=== PATIENT | female | born 1980 | race Caucasian/White ===

== ENCOUNTER 2024-04-26 15:44 | Inpatient (IN) | payer MEDICAID, SELFPAY ==
--- NOTE | 2024-04-26 15:49 | PD.EDRME ---
Rapid Medical Screening Exam RME Arrival date/time: 04/26/24 15:44 Chief Complaint: Altered Mental Status Time Seen by Provider: 04/26/24 15:49 RME Narrative: 43 year old female with past medical history significant for type 2 diabetes, current smoker, presents to the Emergency Department with complaint of left arm numbness and now going to her left face and jaw area onset the last 2 days but numbness to the face and jaw started today in the last few hours. No weakness. No pain. Normal gait. 1547: Stroke alert initiated. Orders made at this time are congruent stroke protocol.
[2024-04-26 15:50] VITALS: BMI 29.7
--- NOTE | 2024-04-26 15:50 | XR_ITS ---
Examination: CT brain head without contrast. 2-D sagittal coronal reconstructions Date and time of exam:April 26, 2024 at 1833 hrs. Indications: Stroke alert, onset left-sided body numbness today CTDI: vol (mGy):47.4 DLP: (mGycm):970 Technique: Multiple CT axial sections of the brain have been obtained, 5 mm slice thickness. Contrast has not been administered. 2-D sagittal, coronal reconstructions have been obtained Low dose protocols were performed. One or more of the following dose reduction techniques were used; automated exposure control, adjustment of the mA and/or KV according to patient size, use of iterative reconstruction technique. Findings: No significant ventricular enlargement. Intra-axial or extra-axial hemorrhage density is not seen. No mass effect or midline shift Basal cisterns are not remarkable. Fourth ventricle is midline. Cranial vault intact. Impression: Negative for acute hemorrhage, mass effect or midline shift
--- NOTE | 2024-04-26 15:50 | EKG_ITS ---
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
--- NOTE | 2024-04-26 15:52 | EDNOTE_ITS ---
Neuro Symptoms Deficit-RME/HPI General Chief Complaint: Altered Mental Status Stated Complaint: NUMBNESS TO LEFT ARM TIMES 3 DAYS Time Seen by Provider: 04/26/24 15:49 Arrival date/time: 04/26/24 15:44 RME / HPI RME / HPI Narrative: DR. MAE MAIN ED EVALUATION: 43 year old female with past medical history significant for type 2 diabetes, anxiety, current tobacco smoker, and methamphetamine abuse presents to the [facility] Department with complaint of left arm numbness and now going to her left face and left jaw area onset the last 2 days but numbness to the left face and left jaw started today in the last few hours. No weakness. No pain. Patient standing and normal gait. No facial droop. Patient denies severe headache. Patient denies trauma or having symptoms like this in the past. 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 Related Data Previous Rx's ?Medication ?Instructions ?Recorded metformin 850 mg tablet 850 mg PO BID #60 tabs 10/01 cephalexin 500 mg capsule (Keflex) 500 mg PO TID #21 c aps 10/10/19 acetaminophen 500 mg tablet 1,000 mg (2 x 500 mg) PO Q ID PRN 05/21/20 (Tylenol Extra Strength) fever or pain #60 tabs albuterol sulfate 90 mcg/actuation 2 puff inhalation Q ID #18 grams 05/21/20 aerosol inhaler albuterol sulfate 90 mcg/actuation 2 puff inhalation Q ID PRN 05/21/20 aerosol inhaler shortness of breath or wheez ing #18 grams azithromycin 250 mg tablet See Rx Instructions PO .COM PLEX #6 05/21/20 tabs ibuprofen 800 mg tablet (IBU) 800 mg PO TID PRN pain # 30 tabs 08/03/20 dicyclomine 20 mg tablet 20 mg PO BID #10 tabs Allergies Allergy/AdvReac Type Severity Reaction Status Date / Time No Known Allergies Allergy Verified 06/18/22 07:56 Review of Systems Review of Systems Systems Reviewed: All systems reviewed, normal except as documented Narrative Review of Systems: GEN: No fever, no chills, no weight loss EYES: No discharge, no visual changes, no pain HEENT: No ear pain, no congestion, no sore throat PULM: No shortness of breath, no cough, no congestion CV: No chest pain, no dyspnea on exertion, no palpitations GI: No nausea, no vomiting, no diarrhea, no pain, no constipation : No frequency, no urgency and no dysuria MUSC/SKEL: No joint pain, no back pain SKIN: No rash PSYCH: No hallucinations, no depression HEME/LYMPH: No easy bleeding or bruising tendencies NEURO: No weakness, no headache, + left arm numbness and now going to her left face and left jaw area Past Medical History Past Medical History ENDOCRINE: Positive Diabetes Mellitus Type 2 PSYCHO/SOCIAL: Positive Anxiety Social History SMOKING STATUS: Never smoker SUBSTANCE USE: methamphetamine ALCOHOL: Never ED Exam Narrative Physical exam: GENERAL: In general the patient is awake, interactive, in an emergency department gurney. VITALS: All vitals were reviewed and the pulse ox is 100% on room air which is adequate. HEAD/EYES/EARS/NOSE/THROAT: normo-cephalic, atraumatic, mucus membranes are moist, anicteric, palpebral conjunctiva is pink, trachea is midline. CARDIOVASCULAR: regular rate and regular rhythm, no murmurs, heart sounds are not distant, strong pulses in all four extremities that are equal and symmetric bilateral upper and lower extremities, normal capillary refill. CHEST/PULMONARY: normal chest rise and fall, good air movement, clear to auscultation bilaterally, normal inspiratory to expiratory ratios without evidence of respiratory distress. ABDOMEN: soft, not tender, no masses appreciated BACK: normal range of motion without pain. NEUROLOGICAL: left face numbness; no one-sided weakness. Patient standing and normal gait. No facial droop, moves all four extremities equally without obvious limitations or weakness. EXTREMITY: no tenderness to palpation over the long bones or large joints of the bilateral upper and lower extremities, no joint swelling, no joint erythema, no signs of trauma, no unilateral leg swelling and no peripheral edema. SKIN: warm, dry, well-perfused, no jaundice, no rash, no telangiectasias or petechia. PSYCH: calm, cooperative, no evidence of psychosis or agitation Course Course Course Narrative: 1547: Stroke alert initiated. Orders made at this time are congruent stroke protocol. Quality Measures none Orders Category Date Time Status Bedside Blood Glucose NOW Care 04/26/24 15:50 Active COVID-19 Screening Questionnaire NOW Care 04/26/24 17:31 Active [employer] NOW Care 04/26/24 15:50 Active Continuous Pulse Oximetry NOW Care 04/26/24 15:50 Completed Decision to Admit X1 Care 04/26/24 17:31 Active EKG (ED ONLY) *Do not use* NOW Care 04/26/24 15:50 Completed In and Out Catheter NEEDED Care 04/26/24 15:50 Active Insert IV NOW Care 04/26/24 15:50 Active NIH Stroke Scale now Care 04/26/24 15:50 Active NPO NOW Care 04/26/24 15:50 Active Nurse Swallow Screen x1 Care 04/26/24 15:50 Active Consult to Neurology / Tele-Neurology Routine Cons 04/26/24 15:[address] angio stroke protocol Stat Exams 04/26/24 15:[address] stroke protocol Stat Exams 04/26/24 15:50 Taken EKG (ED Only) Stat Exams 04/26/24 15:50 Draft CBC Stat Lab 04/26/24 16:35 Completed Comprehensive Metabolic Panel Stat Lab 04/26/24 16:35 Completed Drug Screen,Urine Stat Lab 04/26/24 15:50 Ordered HCG Titer if Positive Stat Lab 04/26/24 16:35 Completed Magnesium Stat Lab 04/26/24 16:35 Completed Partial Thromboplastin Time Stat Lab 04/26/24 16:35 Completed Prothrombin Time with INR Stat Lab 04/26/24 16:35 Completed Troponin I Stat Lab 04/26/24 16:35 Completed Urinalysis Stat Lab 04/26/24 15:50 Ordered Ondansetron Inj [Zofran Inj] Med 04/26/24 15:49 Active 4 mg IV Q4HR PRN Oxygen Delivery NOW RT 04/26/24 15:50 Active Vital Signs Vital signs: Vital Signs Pulse Rate 85 04/26/24 16:17 Procedures -ED EKG Interpretation #1: Date of EK04/26/24 Time of EK:17 Rate: 82 Interpretation: Interpreted by me Additional EKG comment: sinus rhythm, rate 82, normal interval, normal axis, no STEMI Neuro Symptoms / Deficit MDM Narrative MDM Narrative:: I, Brittney Arambula, am scribing for and in the presence of Dr. Mae. 43-year-old female with history of diabetes, active smoker presenting to the emergency department with intermittent left upper extremity numbness over the last 2 days with radiation to her left neck and face that started approximately 2 hours prior to arrival to the emergency department. The patient states she just was not feeling well and presented here by car. On arrival to the emergency department patient was immediately sent to CAT scan and seen by teleneurologist while in CAT scan. Fingerstick 180 on arrival. The patient was evaluated at triage and I did not see obvious facial droop, the patient was standing, and no focal weakness. Blood pressure is normotensive at 126/85. Teleneurologist did not feel the patient needed a CT angio so it was not completed. Last known normal 2 days ago but increase in symptoms 2 hours ago. Differential diagnosis includes possible lacunar infarct over the last few days, electrolyte abnormality, drug use, TIA. The patient does not have symptoms that suspect a large vessel occlusion. Patient data External records reviewed:: [facility] previous records (Reviewed last ED visit dated 06/18/22 discharged with the following: Body aches) Clinical information provided by:: patient Social determinants that could affect healthcare access:: none Patient has the following chronic illnesses:: type 2 diabetes, anxiety, current tobacco smoker, and methamphetamine abuse How is presenting disease/condition affected by chronic disease/condition?: exacerbated by Evaluation data The following diagnostics were reviewed and interpreted by me:: lab results, radiology exam(s) and EKG tracing(s) Lab and/or radiology exams considered but not ordered:: none Interpretation Summary: [facility] [address] [place] [address] [employer] Preliminary Report Draft Patient: ALPA VASQUEZ [facility]. Record#: [id number] Birthdate: 1980 Age/Sex: 43 / F Location: [facility] Attending Dr: Ordering Physician: Date of Service: Procedure(s): Accession Number(s): cc: ~ CT scan of the head without intravenous contrast (axial sections with sagittal and coronal reformats) April 26, 2024 1553 hours Clinical History: Focal neuro deficit, stroke suspected Findings: No evidence of intracranial hemorrhage, mass effect or midline shift. No definitive wedge-shaped acute infarcts are detected. The ventricles and CSF spaces are unremarkable. The calvarium is unremarkable. The mastoid air cells and the visualized paranasal sinuses are clear. Impression: No evidence of acute infarct, intracranial hemorrhage, mass effect or midline shift. If there are persistent clinical symptoms or additional clinical concerns, consider MRI. Discussion Details: Results verbally communicated to : Dr. Mae at 04:07 PM 04/26/2024 Report Electronically Signed By: Eliza Gómez 04/26/2024 4:29:16 PM [EST] Dictated By: Signed By: DD/ 1558 TD/TT: 04/26/24 1629 Ring Striker: Medications / Prescriptions Medications or Prescriptions considered but not ordered:: none Medication administrations:: Medication Administration History Ondansetron HCl (Ondansetron Inj 2 Mg/Ml Inj 2 Ml) 4 mg IV Q4HR PRN PRN Reason: NAUSEA OR VOMITING Stop: 05/26/24 15:48 see above Consultations Consultation(s) initiated? (list below): Yes Consultation #1 (Physician, Specialty, Details): Discussed test HPI, PMHx, lab, radiology results and/or management with tele neurologist. NIH score of 0. Following her recommendations (see her note for details), including admission for MRI and she does not recommend a CTA. Time: 16:19 Consultation #2 (Physician, Specialty, Details): Radiology called to state that the patient does not have an acute bleed or any other abnormality on her CT scan without contrast Time: 16:00 Consultation #3 (Physician, Specialty, Details): Discussed test HPI, PMHx, lab, radiology results and/or management with hospitalist. Will admit for further evaluation and management. Accepts patient for admission. Time: 17:31 Diagnosis Neuro Differential Diagnosis: transient cerebral ischemia and other (lacunar infarct, peripheral abnormality, electrolyte abnormality, drug use) Most likely diagnosis given after review of the tests above:: Left-sided numbness Admission Indicated Admission indicated?: indicated Explain why admission is indicated or not indicated:: Patient needs workup for TIA. Admission Request Was there a request for admission?: Yes Admission Attestation Admission request attestation: Discussed case with [] from Hospitalist service regarding admission. Discussed patients ED course, exam findings, labs, and radiology results. The Hospitalist [agrees,declines] to accept the patient for admission. Disposition Plan Disposition Plan: Admit Critical Care Time Critical Care Time Critical Care Time: Yes Total Critical Care Time (min.): 45 Attestation: The high probability of sudden, clinically significant deterioration in the patient?s condition required the highest level of my preparedness to intervene urgently. The services I provided to this patient were to treat and/or prevent clinically significant deterioration. Services included the following: chart data review, reviewing nursing notes and/or old charts, documentation time, application consultant collaboration regarding findings and treatment options, medication orders and management, direct patient care, vital sign assessments and ordering, interpreting and reviewing diagnostic studies and lab tests. Aggregate critical care time includes only time during which I was engaged in work directly related to the patient?s care, as described above, whether at bedside or elsewhere in the Emergency Department. It did not include time spent performing other reported procedures or the services of residents, students, nurses or physician assistants. Discharge Plan Plan Patient Disposition: Admit Acute Care w/in Hospital Patient condition on transfer: Stable Prescriptions/Referrals Prescriptions/Med Rec: No Action albuterol sulfate 90 mcg/actuation HFA aerosol inhaler 2 puff inhalation QID PRN (Reason: shortness of breath or wheezing) Qty: 18 0RF albuterol sulfate 90 mcg/actuation HFA aerosol inhaler 2 puff inhalation QID Qty: 18 0RF acetaminophen [Tylenol Extra Strength] 500 mg tablet 1,000 mg PO QID PRN (Reason: fever or pain) Qty: 60 0RF azithromycin 250 mg tablet See Rx Instructions .ROUTE .COMPLEX Qty: 6 0RF Rx Instructions: take 500 mg today (day 1), then 250 mg for 4 days (days 2-5) ibuprofen [IBU] 800 mg tablet 800 mg PO TID PRN (Reason: pain) Qty: 30 0RF metformin 850 mg tablet 850 mg PO BID Qty: 60 0RF cephalexin [Keflex] 500 mg capsule 500 mg PO TID Qty: 21 0RF dicyclomine 20 mg tablet 20 mg PO BID Qty: 10 0RF Problem List Clinical Impression: Left sided numbness, History of diabetes mellitus Patient/Caregiver Discharge Instructions Print Language: Hebrew Stand Alone Forms: Deborah Award Info., Patient Portal Info Letter
[2024-04-26 16:17] VITALS: PULSE 85
--- NOTE | 2024-04-26 16:20 | ESCONSULT_ITS ---
Tele Neuro Consultation Consultation Date 04/26/24 Consultation Narrative [facility] Tele[facility]urology Consult [facility] Patient Name:???Mary Alice Best Date of :???1980 Identification Number:??? Date of Service:???04/26/2024 15:49:50 Diagnosis:?R20.2 - Paresthesia of skin Impression: ?The patient has had waxing and waning left upper extremity numbness involving all 5 fingers of the left arm and also some paresthesias to the left face. This would not be consistent with a peripheral nerve problem. It is somewhat unusual that she has a position dependency to the left upper extremity but not the facial symptoms. This could be myelopathic in nature, but with no clear neck or radicular pain, she will need MRI of the brain to exclude a vascular event. Recommend starting aspirin for now. She will need routine CTA head and neck, transthoracic echocardiogram, fasting lipid panel, hemoglobin A1c. Our recommendations are outlined below. Recommendations: ? Stroke/Telemetry Floor ? Neuro Checks ? Bedside Swallow Eval ? DVT Prophylaxis ? IV Fluids, Normal Saline ? Head of Bed 30 Degrees ? Euglycemia and Avoid Hyperthermia (PRN Acetaminophen) ? Initiate or continue Aspirin 325 MG daily ? Antihypertensives PRN if Blood pressure is greater than 220/120 or there is a concern for End organ damage/contraindications for permissive HTN. If blood pressure is greater than 220/120 give labetalol PO or IV or Vasotec IV with a goal of 15% reduction in BP during the first 24 hours. Sign Out: ? Discussed with Emergency Department Provider Advanced Imaging: Advanced Imaging Deferred because: Non-disabling symptoms as verified by the patient; no cortical signs so not consistent with LVO Metrics: Last Known Well: Unknown Dispatch Time: 04/26/2024 15:49:50 Arrival Time: 04/26/2024 15:44:00 Initial Response Time: 04/26/2024 15:52:58Symptoms: left face and arm numbness/paresthesias. Initial patient interaction: 04/26/2024 15:57:00 NIHSS Assessment Completed: 04/26/2024 16:07:00Patient is not a candidate for Thrombolytic. Thrombolytic Medical Decision: 04/26/2024 16:07:00Patient was not deemed candidate for Thrombolytic because of following reasons: LKW outside 4.5 hr window. . I personally Reviewed the CT Head and it Showed no acute changes Primary Provider Notified of Diagnostic Impression and Management Plan on: 04/26/2024 16:24:40 History of Present Illness:Patient is a 43 year old Female. Patient was brought by private transportation with symptoms of left face and arm numbness/paresthesias. The patient is a 43-year-old woman with a history of diabetes and chronic tobacco use. She smokes half a pack per day and has smoked since she was 11 years of age. She does not take any blood thinners. 4 days ago she noted a waxing and waning numbness to her left arm and hand. She says that the pins and needle sensation that involves all 5 fingers and the entirety of the arm. Interestingly, she notes that if she holds the arm down. She has the symptoms more prominently, however, regardless of arm position. She has some pins and needles in her left face and cheek region as well. Her symptoms recurred at 11 AM today, but again has been coming and going for days now. There is no weakness, no vision change. She does not have any neck pain or radicular symptoms. Her symptoms cannot be changed by movement of her neck just her arm. No headache or chest pain. Past Medical History: ?Diabetes Mellitus Medications: No Anticoagulant use? No Antiplatelet use Reviewed EMR for current medications Allergies:? Reviewed Social History: Drug Use: No Family History: There is no family history of premature cerebrovascular disease pertinent to this consultation ROS : 14 Points Review of Systems was performed and was negative except mentioned in HPI. Past Surgical History: There Is No Surgical History Contributory To Today?s Visit Examination: BP(126/85),?Pulse(74),?Blood Glucose(188) 1A: Level of Consciousness - Alert; keenly responsive?+ 0 1B: Ask Month and Age - Both Questions Right?+ 0 1C: Blink Eyes & Squeeze Hands - Performs Both Tasks?+ 0 2: Test Horizontal Extraocular Movements - Normal?+ 0 3: Test Visual Sebastian - No Visual Loss?+ 0 4: Test Facial Palsy (Use Grimace if Obtunded) - Normal symmetry?+ 0 5A: Test Left Arm Motor Drift - No Drift for 10 Seconds?+ 0 5B: Test Right Arm Motor Drift - No Drift for 10 Seconds?+ 0 6A: Test Left Leg Motor Drift - No Drift for 5 Seconds?+ 0 6B: Test Right Leg Motor Drift - No Drift for 5 Seconds?+ 0 7: Test Limb Ataxia (FNF/Heel-De La O) - No Ataxia?+ 0 8: Test Sensation - Normal; No sensory loss?+ 0 9: Test Language/Aphasia - Normal; No aphasia?+ 0 10: Test Dysarthria - Normal?+ 0 11: Test Extinction/Inattention - No abnormality?+ 0 NIHSS Score:?0 NIHSS Free Text :?she feels a tingling when touched to her left face and arm but denies tennille numbness Pre-Morbid Modified [place] Scale:0 Points = No symptoms at all Spoke with :?ED MD This consult was conducted in real time using interactive audio and video technology. Patient was informed of the technology being used for this visit and agreed to proceed. Patient located in hospital and provider located at home/office setting. Patient is being evaluated for possible acute neurologic impairment and high probability of imminent or life-threatening deterioration. I spent total of 35 minutes providing care to this patient, including time for face to face visit via telemedicine, review of medical records, imaging studies and discussion of findings with providers, the patient and/or family. Dr Ning Carpio [facility] For Inpatient follow-up with [facility] physician please call [facility] at . As we are not an outpatient service for any post hospital discharge needs please contact the hospital for assistance. If you have any questions for the [facility] physicians or need to reconsult for clinical or diagnostic changes please contact us via [facility] at .
[2024-04-26 16:22] VITALS: BP 126/85; PULSE 90; RESP 20; TEMP 36.7; O2SAT 100
--- NOTE | 2024-04-26 16:29 | PRELIM_ITS ---
CT scan of the head without intravenous contrast (axial sections with sagittal and coronal reformats) April 26, 2024 1553 hours Clinical History: Focal neuro deficit, stroke suspected Findings: No evidence of intracranial hemorrhage, mass effect or midline shift. No definitive wedge-shaped acute infarcts are detected. The ventricles and CSF spaces are unremarkable. The calvarium is unremarkable. The mastoid air cells and the visualized paranasal sinuses are clear. Impression: No evidence of acute infarct, intracranial hemorrhage, mass effect or midline shift. If there are persistent clinical symptoms or additional clinical concerns, consider MRI. Discussion Details: Results verbally communicated to : Dr. Mae at 04:07 PM 04/26/2024 Report Electronically Signed By: Eliza Gómez 04/26/2024 4:29:16 PM [EST]
[2024-04-26 16:55] LABS: Basophils % (Auto) 0 % (0-2.5); Eosinophils # (Auto) 0.1 Thou/mm3 (0.0-0.5); Eosinophils % (Auto) 2 % (0-10); Hematocrit 33.5 % (36.0-46.0); Hemoglobin 11.3 g/dL (12.0-16.0); Immature Granulocytes % (Auto) 0 % (0-0); Immature Granulocytes Auto 0.02 Thou/mm3 (0.00-0.00); Lymphocytes # (Auto) 2.3 Thou/mm3 (1.0-4.8); Lymphocytes % (Auto) 36 % (10-50); Mean Corpuscular HGB Conc 33.7 g/dl (31.0-37.0); Mean Corpuscular Hemoglobin 26.7 pg (25.0-35.0); Mean Corpuscular Volume 79 fL (80-100); Monocytes # (Auto) 0.4 Thou/mm3 (0.0-0.8); Monocytes % (Auto) 7 % (0-12); Neutrophils # (Auto) 3.4 Thou/mm3 (1.8-7.7); Neutrophils % (Auto) 55 % (37-80); Nucleated Red Blood Cell % 0 /100 WBC (0); Platelet Count 280 Thou/mm3 (140-440); RDW Standard Deviation 38.5 fL (36.4-46.3); Red Blood Count 4.23 Miln/mm3 (4.00-5.20); White Blood Count 6.2 Thou/mm3 (3.6-11.0)
[2024-04-26 17:08] LABS: Partial Thromboplastin Time 24.6 Seconds (22.0-36.0); Prothrombin Time 10.9 Seconds (9.0-12.2)
[2024-04-26 17:39] LABS: Alanine Aminotransferase < 7 U/L (10-49); Albumin, Serum 4.4 gm/dL (3.5-5.0); Albumin/Globulin Ratio 1.7 (1.2-2.2); Alkaline Phosphatase 69 U/L (46-116); Anion Gap 9 (7-16); Aspartate Amino Transferase 11 U/L (0-34); BUN/Creatinine Ratio 16 Ratio (12-20); Bilirubin,Total 0.3 mg/dL (0.3-1.2); Blood Urea Nitrogen 14 mg/dL (9-23); Calcium 9.7 mg/dL (8.3-10.6); Calcium (Corrected) 9.7 mg/dL (8.5-10.1); Carbon Dioxide 24.2 mMol/L (20.0-31.0); Chloride 106 mMol/L (98-107); Creatinine (Component) 0.9 mg/dL (0.6-1.3); Globulin 2.6 gm/dL (2.3-3.5); Glucose 134 mg/dL (74-106); Magnesium 1.8 mg/dL (1.6-2.6); Osmolality,Calculated 280 (275-295); Potassium 3.8 mMol/L (3.4-5.1); Sodium 139 mMol/L (136-145); Troponin I < 0.002 ng/mL (0.0-0.045); eGFR > 60 See Note
[2024-04-26 17:56] LABS: HCG Titer if Positive Negative
[2024-04-26 18:02] VITALS: BP 127/81; PULSE 94; RESP 18; TEMP 36.9; O2SAT 98
[2024-04-26 18:39] LABS: Collection Type, Urine Voided
[2024-04-26 18:45] LABS: Bacteria,Urine Rare; Bilirubin,Urine Negative (Negative); Blood,Urine Negative (Negative); Clarity,Urine Clear (Clear/Hazy); Color,Urine Lt-Yellow (Lt Yel-Yel); Glucose, Urine Negative (Negative); Ketones,Urine Negative (Negative); Leukocyte Esterase,Urine Negative (Negative); Nitrite,Urine Negative (Negative); Protein,Urine Negative (Neg - Trace); RBC,Urine 2 /hpf (0-3); Specific Gravity,Urine 1.014 (1.001-1.035); Squamous Epithelial Cell,Urine 3 /hpf (0-5); Urobilinogen,Urine Negative mg/dL (0.0-1.0); WBC,Urine 4 /hpf (0-5)
[2024-04-26 18:50] LABS: Amphetamine/Methamp Scrn,U Negative (Negative); Barbiturate Screen,Urine Negative (Negative); Benzodiazepines Screen,Urine Negative (Negative); Benzoylecgonine Screen, Ur Negative (Negative); Fentanyl Screen,Urine Negative (Negative); Opiate Screen,Urine Negative (Negative); THC Screen,Urine Negative (Negative)
[2024-04-26 19:30] VITALS: PULSE 81; PULSE 86; RESP 14; RESP 98
[2024-04-26] MEDS: ASPIRIN EC 81 MG TABEC PO (19:45)
--- NOTE | 2024-04-26 19:57 | ESHP_ITS ---
<Statement entered by Gregoria Kendrick MD - 04/27/24 07:45> Patient was seen and examined by me personally. I have directly supervised and reviewed documentation by the team resident and agree with its findings with any exceptions or additional findings as below. Plan of care was discussed with the attending, Dr. Upton. Gregoria Kendrick, PGY-2 Documentation for date of: 04/26/24 HPI History of Present Illness Chief complaint: numbness in the face and left arm History of present illness: The patient is a 43-year-old right handed female with a previous medical history of type 2 diabetes, active smoker, previous meth use who came to the ED with complaints of left arm and face numbness, pins and needles sensation that started approximately 4 days ago, she reports if she holds her arm down the paresthesia sensation in the arm worsen. During questioning she reported that she has started having shortness of breath when walking from her car to her house. She denied having palpitations, headaches, chest pain, traumas, falls. In the ED blood pressure was 126/89, heart rate 85, she was afebrile, saturating well on room air. Labs were unremarkable besides a mild anemia, U tox was negative, hCG was negative. Stroke alert was called, teleneuro was consulted, NIHSS score 0, patient's not a candidate for thrombolytic therapy. Recommended starting aspirin, CT angio head and neck, MRI of the brain. EKG showed sinus rhythm, head CT was negative for acute hemorrhage, mass effect or midline shift. Patient was admitted for stroke rule out and workup. 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 Patient reports smoking half a pack a day for more than 20 years. Denies alcohol use. Has a history of meth use, reports being clean for 3 years. Denies other recreational drugs. Surgical history: Denies recent surgeries Allergies: Denies Meds: full med rec is pending, reports taking Ozempic Review of Systems Review of Systems Systems Reviewed: All systems reviewed, normal except as documented Exam Vital Signs Temp Pulse Resp BP Pulse Ox O2 Del Method 98.4 F 81 14 127/81 98 Room Air 04/26/24 18:02 04/26/24 19:30 04/26/24 19:30 04/26/24 18:02 04/26/24 18:02 04/26/24 18:02 Narrative Exam Gen: Well-developed and well-nourished. HEENT: NCAT, PERRLA, EOMI, MMM, anicteric conjunctivae. CVS: normal S1 and S2. RRR. No M/R/G. Resp: CTA B/L. No rhonchi, rales, crackles or wheezing. Abd: soft, non-tender, non-distended. BS+ in all 4 quadrants. MSK: Good ROM in BUE & BLE. No edema or rash. Neuro: CN II-XII grossly intact. Strength 5/5 in BUE & BLE. Alert and oriented x3. Sensations intact. Psych: appropriate mood and affect. Results: Labs 04/27/24 05:44 04/27/24 05:44 Labs: Short CBC 04/26/24 Range/Units 16:35 WBC 6.2 (3.6-11.0) Thou/mm3 Hgb 11.3 L (12.0-16.0) g/dL Hct 33.5 L (36.0-46.0) % Plt Count 280 (140-440) Thou/mm3 BMP 04/26/24 16:35 Sodium 139 Potassium 3.8 Chloride 106 Carbon Dioxide 24.2 BUN 14 Creatinine 0.9 Glucose 134 H Calcium 9.7 Cardiac Enzymes 04/26/24 Range/Units 16:35 Troponin I < 0.002 (0.0-0.045) ng/mL Liver Function 04/26/24 Range/Units 16:35 Total Bilirubin 0.3 (0.3-1.2) mg/dL AST 11 (0-34) U/L ALT < 7 L (10-49) U/L Alkaline Phosphatase 69 (46-116) U/L Albumin 4.4 (3.5-5.0) gm/dL Urine 04/26/24 Range/Units 18:18 Urine Color Lt-Yellow (Lt Yel-Yel) Urine Clarity Clear (Clear/Hazy) Urine pH 6.0 (5.0-7.0) Ur Specific [place] 1.014 (1.001-1.035) Urine Protein Negative (Neg - Trace) Urine Glucose (UA) Negative (Negative) Quality Measures Quality Measures VTE prophylaxis Medications Home Medications and Allergies Allergies Allergy/AdvReac Type Severity Reaction Status Date / Time No Known Allergies Allergy Verified 06/18/22 07:56 Visit Medications Acetaminophen (Acetaminophen 325 Mg Tablet) 650 mg PO Q6H PRN PRN Reason: Fever >100.3 or pain 1-3 Stop: 05/26/24 18:39 Aspirin (Aspirin Ec 81 Mg Tabec) 81 mg PO QDAY ARIE Stop: 05/26/24 18:59 Last Admin: 04/26/24 19:45 Dose: 81 mg Dextrose (Dextrose 50%-Water Inj 50 Ml Syringe) 25 ml IV Q15MIN PRN PRN Reason: BG 50-70 responsive npo pt Stop: 05/26/24 18:44 Dextrose (Dextrose 50%-Water Inj 50 Ml Syringe) 50 ml IV Q15MIN PRN PRN Reason: BG <50 OR BG <70 & pt unresponsive Stop: 05/26/24 18:44 Enoxaparin Sodium (Enoxaparin Sod Inj 40 Mg/0.4 Ml Syringe) 40 mg SC QDAY ARIE Stop: 05/11/24 08:59 Glucagon (Glucagon Inj 1 Mg Vial) 1 mg IM Q15MIN PRN PRN Reason: BG <70, and no IV access Insulin Human Lispro (Insulin Lispro (Admelog) 1 Unit/0.01 Ml Unit) 0 unit SC AC [facility]; Protocol Stop: 05/27/24 07:29 Ondansetron HCl (Ondansetron Inj 2 Mg/Ml Inj 2 Ml) 4 mg IV Q4HR PRN PRN Reason: NAUSEA OR VOMITING Stop: 05/26/24 15:48 Sennosides (Senna Tablet) 1 tab PO QDAY PRN; Protocol PRN Reason: constipation Stop: 05/26/24 18:39 Discontinued Medications Aspirin (Aspirin Ec 81 Mg Tabec) 81 mg PO X1 ONE Stop: 04/26/24 18:49 Last Admin: 04/26/24 19:49 Dose: Not Given Assessment & Plan Plan The patient is a 43-year-old right handed female with a previous medical history of type 2 diabetes, active smoker, previous meth use who came to the ED with complaints of left arm and face numbness, pins and needles sensation that started approximately 4 days ago who was admitted for stroke rule out. #Stroke rule out Patient has a history of diabetes and is an active smoker. Reports that her symptoms started 4 days ago. DDX: Acute stroke vs radiculopathy. CT head was unremarkable. Plan: -MRI brain ordered -Telemetry -Neuro Checks Q4 -DVT Prophylaxis -Head of bed 30 degrees -Tylenol PRN, maintain euthermia and euglycemia -Atorvastatin 40 mg HS -Aspirin 81 mg qday -Neurologist Dr. Duval consulted -Ordered Echo -Blood pressure normal, will start BP meds if BP high -Lipid panel, A1C, TSH ordered -Speech therapy, Physical therapy evaluation #CHF? #COPD? Patient reported having shortness of breath when walking from the car to her house and has a history of type 2 diabetes and is an active smoker. Troponin I was negative. Patient saturates well on room air. Plan: - Echo ordered #Type 2 diabetes Plan: - A1c ordered - Insulin sliding scale - Hypoglycemia protocol Health maintenance: FEN: NPO until passing swallow screen DVT prophylaxis: lovenox 40 mg sc GI prophylaxis: none Dispo: telemetry CODE STATUS: Full code Plan of care discussed with attending Dr. Upton, PGY-[address] Kendrick. Cristy Schuster MD, PGY 1. Attending Provider Attestation/Addendum I reviewed labs, imaging, EKG, home medications and prior available records. Face to face evaluation was performed by me. I have personally examined the patient and discussed assessment and plan with the IM team. I reviewed the resident note and agree with the plan with exceptions as below. Left arm numbness Left toe numbness Chest pain at rest Type 2 diabetes mellitus with hyperglycemia Active tobacco use CT head is negative for acute changes Teleneurology was consulted and recommended aspirin and brain MRI Every 4 hour neurochecks Echocardiogram Counseled the patient regarding the importance of tobacco cessation Started sliding scale insulin. Monitor fingersticks
[2024-04-26] MEDS: ATORVASTATIN CALCIUM 20 MG TABLET 40 MG PO (21:57)
[2024-04-26 23:12] VITALS: PULSE 65; RESP 22; O2SAT 100
[2024-04-27] VITALS (8 sets, daily range): BP systolic 111–130; BP diastolic 70–78; PULSE 64–93; RESP 10–98; TEMP 36.1–37.1; O2SAT 96–98
--- NOTE | 2024-04-27 | XR_ITS ---
Examinations: MRI Brain without intravenous contrast. MRA brain without intravenous contrast. MRA carotids without intravenous contrast 3-D vascular reconstructions Date and time of exam: April 27, 2024 0942 hours INDICATIONS: Onset left arm and face numbness and paresthesias beginning 5 days ago, CT stroke alert April 26, 2024 Technique: Multiple axial and sagittal images of the brain have been obtained MRA brain carotid images without contrast obtained, including 3-D postprocessing, vascular maximum intensity projection images Findings: [place] is not enlarged. The optic chiasm and infundibular stalk are not remarkable. Prepontine and interpeduncular cisterns are not enlarged. No localized enlargement of the medulla or rachele. Fourth ventricle and cerebellar tonsils normal in position. Subacute hemorrhage is not seen. Fourth ventricle is midline. Mass in the cerebellopontine angle region is not evident. 7th and 8th nerve complexes exhibits symmetry. Globes are symmetrical with no retro-orbital mass. Increased white matter signal evident, scattered punctate foci increased signal in the cerebral white matter Diffusion-weighted images demonstrate no focus of restricted diffusion Mass-effect upon the ventricular system is not identified. MRA carotid images no significant stenoses. MRA brain images no large vessel occlusions Impression: Demyelinating disease, scattered punctate foci increased signal in the white matter
[2024-04-27 06:21] LABS: Basophils % (Auto) 0 % (0-2.5); Eosinophils # (Auto) 0.1 Thou/mm3 (0.0-0.5); Eosinophils % (Auto) 3 % (0-10); Hematocrit 32.3 % (36.0-46.0); Immature Granulocytes % (Auto) 0 % (0-0); Immature Granulocytes Auto 0.01 Thou/mm3 (0.00-0.00); Lymphocytes % (Auto) 38 % (10-50); Mean Corpuscular HGB Conc 34.1 g/dl (31.0-37.0); Mean Corpuscular Hemoglobin 27.2 pg (25.0-35.0); Mean Corpuscular Volume 80 fL (80-100); Monocytes # (Auto) 0.4 Thou/mm3 (0.0-0.8); Monocytes % (Auto) 8 % (0-12); Neutrophils # (Auto) 2.7 Thou/mm3 (1.8-7.7); Neutrophils % (Auto) 51 % (37-80); Nucleated Red Blood Cell % 0 /100 WBC (0); Platelet Count 253 Thou/mm3 (140-440); RDW Standard Deviation 38.4 fL (36.4-46.3); Red Blood Count 4.05 Miln/mm3 (4.00-5.20); White Blood Count 5.2 Thou/mm3 (3.6-11.0)
[2024-04-27 06:36] LABS: Prothrombin Time 11.3 Seconds (9.0-12.2)
[2024-04-27 06:45] LABS: Glucose Estimated Average 148 mg/dL (80-131); Hemoglobin A1C 6.8 % Hgb (4.8-6.0)
[2024-04-27 07:03] LABS: Albumin, Serum 3.8 gm/dL (3.5-5.0); Albumin/Globulin Ratio 1.6 (1.2-2.2); Alkaline Phosphatase 63 U/L (46-116); Anion Gap 5 (7-16); BUN/Creatinine Ratio 16 Ratio (12-20); Bilirubin,Total 0.5 mg/dL (0.3-1.2); Blood Urea Nitrogen 13 mg/dL (9-23); Calcium (Corrected) 9.2 mg/dL (8.5-10.1); Carbon Dioxide 24.8 mMol/L (20.0-31.0); Cardiac Risk Estimate 3.4 RATIO (3.7-5.6); Chloride 108 mMol/L (98-107); Cholesterol 155 mg/dL (132-200); Creatinine (Component) 0.8 mg/dL (0.6-1.3); Estimated Creatinine Clearance 100.1 mL/min (>60); Globulin 2.4 gm/dL (2.3-3.5); Glucose 132 mg/dL (74-106); HDL Cholesterol 46 mg/dL (40-60); LDL Cholesterol,Calculated 94 mg/dL (0-130); Magnesium 1.7 mg/dL (1.6-2.6); Osmolality,Calculated 277 (275-295); Phosphorous 4.5 mg/dL (2.4-5.1); Sodium 138 mMol/L (136-145); Thyroid Stimulating Hormone 3.74 uIU/mL (0.55-4.78); Total Protein 6.2 gm/dL (5.7-8.2); Triglycerides 74 mg/dL (30-150); eGFR > 60 See Note
[2024-04-27 07:12] LABS: Alanine Aminotransferase < 7 U/L (10-49); Aspartate Amino Transferase < 8 U/L (0-34)
[2024-04-27] MEDS: ACETAMINOPHEN 325 MG TABLET 650 MG PO (08:15)
[2024-04-27] MEDS: Magnesium Sulfate 4 GM Ivpb 4 GM/50 ML BAG IV (08:15)
[2024-04-27] MEDS: SENNA TABLET 1 TAB PO (08:16)
[2024-04-27] MEDS: ASPIRIN EC 81 MG TABEC PO (08:16)
[2024-04-27] MEDS: ENOXAPARIN SOD INJ 40 MG/0.4 ML SYRINGE SC (08:16)
[2024-04-27 09:09] LABS: B-Type Natriuretic Peptide < 20 pg/mL (0-100)
--- NOTE | 2024-04-27 12:06 | ESPR_ITS ---
Documentation for date of: 04/27/24 Subjective Subjective Interval history: Patient seen and assessed at bedside this morning. Patient states to be feeling much better today. Facial numbness is improved, but still has upper left-sided numbness. Exam Vital Signs Temp Pulse Resp BP Pulse Ox O2 Del Method O2 Flow Rate 97.5 F 79 10 L 111/72 97 Room Air 2 04/27/24 08:00 04/27/24 09:20 04/27/24 09:20 04/27/24 08:00 04/27/24 08:00 04/27/24 08:00 04/26/24 23:12 Narrative Exam Gen: Well-developed and well-nourished. CVS: Regular rate and rhythm, no murmurs, rubs, or gallops. Resp: Chest clear to auscultation bilaterally, no rhonchi, rales, crackles or wheezing. Abd: soft, non-tender, non-distended. BS+. Neuro: CN II-XII grossly intact. Strength 5/5 in BUE & BLE. Alert and oriented x3. Sensations intact. Psych: appropriate mood and affect. Objective Labs 04/27/24 05:44 04/27/24 05:44 Labs: Laboratory Results - last 24 hr 04/26/24 04/26/24 04/27/24 16:35 18:18 05:44 WBC 6.2 5.2 RBC 4.23 4.05 Hgb 11.3 L 11.0 L Hct 33.5 L 32.3 L MCV 79 L 80 MCH 26.7 27.2 MCHC 33.7 34.1 RDW Std Deviation 38.5 38.4 Plt Count 280 253 Neut % (Auto) 55 51 Lymph % (Auto) 36 38 [place] % (Auto) 7 8 Eos % (Auto) 2 3 Baso % (Auto) 0 0 Neut # (Auto) 3.4 2.7 Lymph # (Auto) 2.3 2.0 [place] # (Auto) 0.4 0.4 Eos # (Auto) 0.1 0.1 Baso # (Auto) 0.0 0.0 Immature Gran # (Auto) 0.02 H 0.01 H Absolute Nucleated RBC 0.00 0.00 Immature Gran % 0 0 Nucleated RBC % 0 0 PT 10.9 11.3 INR 1.0 1.0 APTT 24.6 Sodium 139 138 Potassium 3.8 4.0 Chloride 106 108 H Carbon Dioxide 24.2 24.8 Anion Gap 9 5 L BUN 14 13 Creatinine 0.9 0.8 Estim Creat Clear Calc 89.0 100.1 eGFR > 60 > 60 BUN/Creatinine Ratio 16 16 Glucose [address] Glu mg/dL 148 H Hemoglobin A1c 6.8 H Calculated Osmolality 280 277 Calcium 9.7 9.0 Corrected Calcium 9.7 9.2 Phosphorus 4.5 Magnesium 1.8 1.7 Total Bilirubin 0.3 0.5 AST 11 < 8 ALT < 7 L < 7 L Alkaline Phosphatase 69 63 Troponin I < 0.002 B-Natriuretic Peptide < 20 Total Protein 7.0 6.2 Albumin 4.4 3.8 D Globulin 2.6 2.4 Albumin/Globulin Ratio 1.7 1.6 Triglycerides 74 Cholesterol 155 LDL Cholesterol, Calc 94 HDL Cholesterol 46 Cholesterol/HDL Ratio 3.4 L TSH 3.74 Ur Collection Type Voided Urine Color Lt-Yellow Urine Clarity Clear Urine pH 6.0 Ur Specific [place] 1.014 Urine Protein Negative Urine Glucose (UA) Negative Urine Ketones Negative Urine Blood Negative Urine Nitrite Negative Urine Bilirubin Negative Urine Urobilinogen (Auto) Negative Ur Leukocyte Esterase Negative Urine RBC 2 Urine WBC 4 Ur Squamous Epith Cells 3 Urine Bacteria Rare Urine Opiates Screen Negative Urine Fentanyl Screen Negative Ur Barbiturates Screen Negative U Amphetamin/Meth Scrn Negative U Benzodiazepines Scrn Negative U Cocaine Metab Screen Negative U Marijuana (THC) Screen Negative HCG (Qual) Negative Quality Measures Quality Measures VTE prophylaxis Assessment & Plan Assessment Current Active Medications: Generic Name Dose Route Start Last Admin Trade Name Diana PRN Reason Stop Dose Admin Acetaminophen 650 mg 04/26/24 18:40 04/27/24 08:15 Acetaminophen 325 Mg Tablet PO 05/26/24 18:39 650 mg Q6H PRN Administration Fever >100.3 or pain 1-3 Aspirin 81 mg 04/26/24 19:00 04/27/24 08:16 Aspirin Ec 81 Mg Tabec PO 05/26/24 18:59 81 mg QDAY ARIE Administration Atorvastatin Calcium 40 mg 04/26/24 21:00 04/26/24 21:57 Atorvastatin Calcium 20 Mg Tablet PO 05/26/24 20:59 40 mg HS ARIE Administration Dextrose 25 ml 04/26/24 18:45 Dextrose 50%-Water Inj 50 Ml Syringe IV 05/26/24 18:44 Q15MIN PRN BG 50-70 responsive npo pt Dextrose 50 ml 04/26/24 18:45 Dextrose 50%-Water Inj 50 Ml Syringe IV 05/26/24 18:44 Q15MIN PRN BG <50 OR BG <70 & pt unresponsive Enoxaparin Sodium 40 mg 04/27/24 09:00 04/27/24 08:16 Enoxaparin Sod Inj 40 Mg/0.4 Ml Syringe SC 05/11/24 08:59 40 mg QDAY ARIE Administration Glucagon 1 mg 04/26/24 18:45 Glucagon Inj 1 Mg Vial IM Q15MIN PRN BG <70, and no IV access Insulin Human Lispro 0 unit 04/27/24 07:30 04/27/24 07:27 Insulin Lispro (Admelog) 1 Unit/0.01 Ml Unit SC 05/27/24 07:29 Not Given AC [facility] Protocol Ondansetron HCl 4 mg 04/26/24 15:49 Ondansetron Inj 2 Mg/Ml Inj 2 Ml IV 05/26/24 15:48 Q4HR PRN NAUSEA OR VOMITING Sennosides 1 tab 04/27/24 09:00 04/27/24 08:16 Senna Tablet PO 05/27/24 08:59 1 tab QDAY ARIE Administration Protocol Plan #CVA workup Patient presented with left-sided numbness and facial numbness as well. CT head negative for any acute changes MRI negative for any stroke signs, but consistent with demyelinating disease. Cardiac echo pending Patient on aspirin 81 mg and statin Continue with PT Will likely need outpatient nerve conduction studies #Diabetes mellitus Continue management per primary team Case discussed with attending Dr Simin García MD PGY3 Attending Provider Attestation/Addendum I personally have seen and examined the patient at the bedside and I agree with resident's findings, assessment and plan of care. Reassurance given to the patient regarding the MRI findings: Chronic nonspecific white matter changes not consistent with a demyelinating disease. Patient does not need any further workup. Advised her to take aspirin 81 mg and keep the diabetes under control. Patient is stable for discharge from neurology standpoint.
[2024-04-27] MEDS: INSULIN LISPRO (AdmeLOG) 1 UNIT/0.01 ML UNIT SC (12:22)
--- NOTE | 2024-04-27 12:55 | ESPR_ITS ---
<Statement entered by Gregoria Kendrick MD - 04/27/24 23:33> Patient was seen and examined by me personally. I have directly supervised and reviewed documentation by the team resident and agree with its findings with any exceptions or additional findings as below. Plan of care was discussed with the attending, Dr. Upton. Gregoria Kendrick, PGY-2 Documentation for date of: 04/27/24 Subjective Subjective Interval history: 04/27/2024: No acute overnight events to report and the patient passed swallow eval. Patient seen and examined in hospital bed back to baseline and reporting no concerning symptoms such as chest pain, chest tightness, shortness of breath or difficulty ambulating. Patient's MRI results show demyelinating disorder; pending recommendations from neurology regarding this new finding. Patient continues to be on aspirin and atorvastatin with some waxing and waning left upper extremity paresthesias likely secondary to the MRI findings. Patient's echo with bubble study is still pending but BNP is negative and the patient remains on room air. Will continue monitor for any acute changes. Exam Vital Signs Temp Pulse Resp BP Pulse Ox O2 Del Method O2 Flow Rate 97.5 F 79 10 L 111/72 97 Room Air 2 04/27/24 08:00 04/27/24 09:20 04/27/24 09:20 04/27/24 08:00 04/27/24 08:00 04/27/24 08:00 04/26/24 23:12 Narrative Exam Gen: Well-developed and well-nourished. HEENT: NCAT, PERRLA, EOMI, MMM, anicteric conjunctivae. CVS: normal S1 and S2. RRR. No M/R/G. Resp: CTA B/L. No rhonchi, rales, crackles or wheezing. Abd: soft, non-tender, non-distended. BS+ in all 4 quadrants. MSK: Good ROM in BUE & BLE. No edema or rash. Neuro: CN II-XII grossly intact. Strength 5/5 in BUE & BLE. Alert and oriented x3. Sensations intact. Psych: appropriate mood and affect. Objective Labs 04/27/24 05:44 04/27/24 05:44 Labs: Laboratory Results - last 24 hr 04/26/24 04/26/24 04/27/24 16:35 18:18 05:44 WBC 6.2 5.2 RBC 4.23 4.05 Hgb 11.3 L 11.0 L Hct 33.5 L 32.3 L MCV 79 L 80 MCH 26.7 27.2 MCHC 33.7 34.1 RDW Std Deviation 38.5 38.4 Plt Count 280 253 Neut % (Auto) 55 51 Lymph % (Auto) 36 38 [place] % (Auto) 7 8 Eos % (Auto) 2 3 Baso % (Auto) 0 0 Neut # (Auto) 3.4 2.7 Lymph # (Auto) 2.3 2.0 [place] # (Auto) 0.4 0.4 Eos # (Auto) 0.1 0.1 Baso # (Auto) 0.0 0.0 Immature Gran # (Auto) 0.02 H 0.01 H Absolute Nucleated RBC 0.00 0.00 Immature Gran % 0 0 Nucleated RBC % 0 0 PT 10.9 11.3 INR 1.0 1.0 APTT 24.6 Sodium 139 138 Potassium 3.8 4.0 Chloride 106 108 H Carbon Dioxide 24.2 24.8 Anion Gap 9 5 L BUN 14 13 Creatinine 0.9 0.8 Estim Creat Clear Calc 89.0 100.1 eGFR > 60 > 60 BUN/Creatinine Ratio 16 16 Glucose [address] Glu mg/dL 148 H Hemoglobin A1c 6.8 H Calculated Osmolality 280 277 Calcium 9.7 9.0 Corrected Calcium 9.7 9.2 Phosphorus 4.5 Magnesium 1.8 1.7 Total Bilirubin 0.3 0.5 AST 11 < 8 ALT < 7 L < 7 L Alkaline Phosphatase 69 63 Troponin I < 0.002 B-Natriuretic Peptide < 20 Total Protein 7.0 6.2 Albumin 4.4 3.8 D Globulin 2.6 2.4 Albumin/Globulin Ratio 1.7 1.6 Triglycerides 74 Cholesterol 155 LDL Cholesterol, Calc 94 HDL Cholesterol 46 Cholesterol/HDL Ratio 3.4 L TSH 3.74 Ur Collection Type Voided Urine Color Lt-Yellow Urine Clarity Clear Urine pH 6.0 Ur Specific [place] 1.014 Urine Protein Negative Urine Glucose (UA) Negative Urine Ketones Negative Urine Blood Negative Urine Nitrite Negative Urine Bilirubin Negative Urine Urobilinogen (Auto) Negative Ur Leukocyte Esterase Negative Urine RBC 2 Urine WBC 4 Ur Squamous Epith Cells 3 Urine Bacteria Rare Urine Opiates Screen Negative Urine Fentanyl Screen Negative Ur Barbiturates Screen Negative U Amphetamin/Meth Scrn Negative U Benzodiazepines Scrn Negative U Cocaine Metab Screen Negative U Marijuana (THC) Screen Negative HCG (Qual) Negative Quality Measures Quality Measures VTE prophylaxis Assessment & Plan Assessment Current Active Medications: Generic Name Dose Route Start Last Admin Trade Name Freq PRN Reason Stop Dose Admin Acetaminophen 650 mg 04/26/24 18:40 04/27/24 08:15 Acetaminophen 325 Mg Tablet PO 05/26/24 18:39 650 mg Q6H PRN Administration Fever >100.3 or pain 1-3 Aspirin 81 mg 04/26/24 19:00 04/27/24 08:16 Aspirin Ec 81 Mg Tabec PO 05/26/24 18:59 81 mg QDAY ARIE Administration Atorvastatin Calcium 40 mg 04/26/24 21:00 04/26/24 21:57 Atorvastatin Calcium 20 Mg Tablet PO 05/26/24 20:59 40 mg HS ARIE Administration Dextrose 25 ml 04/26/24 18:45 Dextrose 50%-Water Inj 50 Ml Syringe IV 05/26/24 18:44 Q15MIN PRN BG 50-70 responsive npo pt Dextrose 50 ml 04/26/24 18:45 Dextrose 50%-Water Inj 50 Ml Syringe IV 05/26/24 18:44 Q15MIN PRN BG <50 OR BG <70 & pt unresponsive Enoxaparin Sodium 40 mg 04/27/24 09:00 04/27/24 08:16 Enoxaparin Sod Inj 40 Mg/0.4 Ml Syringe SC 05/11/24 08:59 40 mg QDAY ARIE Administration Glucagon 1 mg 04/26/24 18:45 Glucagon Inj 1 Mg Vial IM Q15MIN PRN BG <70, and no IV access Insulin Human Lispro 0 unit 04/27/24 07:30 04/27/24 12:22 Insulin Lispro (Admelog) 1 Unit/0.01 Ml Unit SC 05/27/24 07:29 2 unit AC ARIE Administration Protocol Ondansetron HCl 4 mg 04/26/24 15:49 Ondansetron Inj 2 Mg/Ml Inj 2 Ml IV 05/26/24 15:48 Q4HR PRN NAUSEA OR VOMITING Sennosides 1 tab 04/27/24 09:00 04/27/24 08:16 Senna Tablet PO 05/27/24 08:59 1 tab QDAY ARIE Administration Protocol Plan 43-year-old right handed female with a previous medical history of type 2 diabetes, active smoker, previous meth use who came to the ED with complaints of left arm and face numbness, pins and needles sensation that started approximately 4 days ago who was admitted for stroke rule out. #Demyelinating disease Initial thoughts were that the patient was having possible CVA as the patient has a history of diabetes and is an active smoker. CT head was negative for any active or acute process. Teleneurology was consulted and NIHSS score was 0 MRI brain shows demyelinating disease Speech therapy completed with no active process Plan: Telemetry Neuro Checks Q4 DVT Prophylaxis Head of bed 30 degrees. Tylenol PRN, maintain euthermia and euglycemia Continue atorvastatin and aspirin Neurologist Dr. Duval consulted Echo with bubble study ordered Physical therapy evaluation pending #[id number], type 2 diabetes A1c of 6.8 on 04/27/2024 Patient on home metformin 850 mg p.o. twice daily Plan: SSI #Normocytic anemia Hemoglobin 11.0 and MCV of 80 Likely secondary to iron deficiency anemia versus anemia of chronic disease, less likely lytic anemia, acute blood loss anemia, vitamin deficiency, myelosuppression Plan: Follow-up outpatient with PCP for workup #Tobacco dependence #Remote history of meth use disorder Patient is U-Tox on this admission is negative Plan: Counseled on tobacco cessation and avoidance of illicit drug use Follow-up PCP for further counseling Hospital Management: Lines: PIV Diet: NPO until passing swallow screen Bowel: Senna GI prophylaxis: none DVT prophylaxis: lovenox 40 mg sc Dispo: MRI results shows demyelinating disease, pending neuro recs Code: Full Patient seen and examined with attending Dr. Upton and senior resident Dr. Aroldo King, PGY-1 Attending Provider Attestation/Addendum I reviewed labs, imaging, EKG, home medications and prior available records. Face to face evaluation was performed by me. I have personally examined the patient and discussed assessment and plan with the IM team. I reviewed the resident note and agree with the plan with exceptions as below. Left arm numbness Left toe numbness Chest pain at rest Type 2 diabetes mellitus with hyperglycemia Active tobacco use CT head is negative for acute changes Teleneurology was consulted and recommended aspirin and brain MRI Brain MRI showed demyelination changes. Appreciate neurology input Every 4 hour neurochecks Follow-up echocardiogram Counseled the patient regarding the importance of tobacco cessation Started sliding scale insulin. Monitor fingersticks
--- NOTE | 2024-04-27 14:42 | PC.SS ---
Mary Alice Eduardo is a 43 year old female admitted to [facility] for Stroke R/O. SS conducted bedside contact with the patient to complete initial assessment and to discuss discharge planning, pt was resting therefore SS contacted pt Life Partner who answered on her behalf.? Richard Nick [phone] confirmed demographic information. He identifies the pts dtr Audelia Best [phone] as her surrogate decision maker. Patient resides at home with her lifepartner. Pt is able to complete all ADL?s independently, no need for any source of DME. Pts PCP is Dr. Hendricks, her pharmacy [facility] choice [facility] [address]. DC options discussed, and Richard wishes for the pt to return home. Pts LP will provide transportation upon DC. No further intervention required at this time, social media strategist would be available to address any further concerns. DC Plan: Home Contact: Audelia Best [phone] PCP: Eladio
--- NOTE | 2024-04-27 18:16 | ESDS_ITS ---
<Statement entered by Gregoria Kendrick MD - 04/27/24 22:24> Patient was seen and examined by me personally. I have reviewed the below documentation by the team resident and agree with its findings with any exceptions as below. Discharge plan was discussed with the attending, Dr. Upton. Patient seen by Neuro this evening, MRI showed demyelinating disease, scattered punctate foci increased signal in the white matter however findings are less likely according to Neuro interpretation. Patient is stable to be discharged, continue aspirin and statin and follow up with Neurology outpatient. Gregoria Kendrick, PGY-2 Planned Discharge Date 04/27/24 DS: Providers Provider Date of admission: 04/26/24 18:40 Primary care physician: Xiang Hendricks MD Admitting Provider: Cristy Schuster MD Attending Provider on Admission: Gildardo Upton MD Consults: 04/26/24 15:50 Consult to Neurology / Tele-Neurology Routine Comment: Consulting Provider: [facility] 04/26/24 18:44 Consult to Neurology / Tele-Neurology Stat Comment: stroke rule out Consulting Provider: Sen Duval Referral Physical Therapy Routine Comment: Physician Instructions: Referral Speech Therapy Routine Comment: Attending Provider on DC: Bill King MD Discharging Provider: Bill King MD DS: Diagnosis Problem List Completed Was Problem List Reviewed/Reconciled?: Yes Hospital Course Hospital Course Hospital course: 43-year-old female with medical history of type 2 diabetes, active smoker, remote history of meth use disorder presented to the ED on 04/26 with reported left arm and face numbness. In the ED, patient was normotensive with normal heart rate and afebrile saturating well on room air. U tox was negative but stroke alert was initiated and teleneurology was consulted. NIHSS score was 0 and the patient was not a candidate for thrombolytic therapy. Recommendation was to admit the patient for stroke rule out and to initiate aspirin. During admission, head CT was negative for any acute process and EKG showed normal sinus rhythm. On the following day, neurology followed the patient who was symptomatically improving and only had intermittent left upper extremity paresthesias. Patient's MRI brain showed possible demyelinating disease although neurology is not very convinced with the reported study results. Patient was counseled on tobacco cessation and told to follow-up outpatient with PCP. Patient will be discharged under stable conditions with the following strict instructions. Please follow-up with Dr Duval, Neurology for MRI findings Continue Aspirin and Statin medications as prescribed Continue taking all your home medications as prescribed Follow-up with your PCP within 1-2 weeks If your symptoms worsen or if you develop new chest pain, shortness of breath, dizziness or weakness - please come back to the ED immediatey. Hospital Diagnosis: #Demyelinating disease #[id number], type 2 diabetes #Normocytic anemia #Tobacco dependence #Remote history of meth use disorder Bill King, PGY-1 Time Spent with Patient Time attestation: Total time spent providing and/or coordinating discharge services: 45 minutes Time spent: Greater than 30 minutes Exam Vital Signs Temp Pulse Resp BP Pulse Ox O2 Del Method O2 Flow Rate 98.7 F 87 26 H 130/75 98 Room Air 2 04/27/24 16:00 04/27/24 16:00 04/27/24 16:04/27/24 16:04/27/24 16:04/27/24 16:04/26/24 23:12 Narrative Exam Gen: Well-developed and well-nourished. HEENT: NCAT, PERRLA, EOMI, MMM, anicteric conjunctivae. CVS: normal S1 and S2. RRR. No M/R/G. Resp: CTA B/L. No rhonchi, rales, crackles or wheezing. Abd: soft, non-tender, non-distended. BS+ in all 4 quadrants. MSK: Good ROM in BUE & BLE. No edema or rash. Neuro: CN II-XII grossly intact. Strength 5/5 in BUE & BLE. Alert and oriented x3. Sensations intact. Psych: appropriate mood and affect. Discharge Plan Plan Patient Disposition: HOME (Self Care) Patient condition on transfer: Stable Care Plan Goals: Please follow-up with Dr Duval, Neurology for MRI findings Continue Aspirin and Statin medications as prescribed Continue taking all your home medications as prescribed Follow-up with your PCP within 1-2 weeks If your symptoms worsen or if you develop new chest pain, shortness of breath, dizziness or weakness - please come back to the ED immediatey. Prescriptions/Referrals Prescriptions/Med Rec: New atorvastatin 20 mg Tablet 40 mg PO HS 30 Days Qty: 60 0RF aspirin [Ecotrin Low Strength] 81 mg Tablet,Delayed Release (Dr/Ec) 81 mg PO QDAY 30 Days Qty: 30 0RF Continued albuterol sulfate 90 mcg/actuation HFA aerosol inhaler 2 puff inhalation QID PRN (Reason: shortness of breath or wheezing) Qty: 18 0RF albuterol sulfate 90 mcg/actuation HFA aerosol inhaler 2 puff inhalation QID Qty: 18 0RF acetaminophen [Tylenol Extra Strength] 500 mg tablet 1,000 mg PO QID PRN (Reason: fever or pain) Qty: 60 0RF azithromycin 250 mg tablet See Rx Instructions .ROUTE .COMPLEX Qty: 6 0RF Rx Instructions: take 500 mg today (day 1), then 250 mg for 4 days (days 2-5) ibuprofen [IBU] 800 mg tablet 800 mg PO TID PRN (Reason: pain) Qty: 30 0RF metformin 850 mg tablet 850 mg PO BID Qty: 60 0RF cephalexin [Keflex] 500 mg capsule 500 mg PO TID Qty: 21 0RF dicyclomine 20 mg tablet 20 mg PO BID Qty: 10 0RF Referrals: Xiang Hendricks MD [Primary Care Provider] - Patient/Caregiver Discharge Instructions Education Materials: Stroke Prevent Another Caregiver Print Language: Fijian Stand Alone Forms: Jarvam Award Info., Patient Portal Info Letter Discharge Order Discharge Orders: Discharge (Routine); Ordered 04/27/24 Ordered By: Bill King Quality Discharge Quality Measures VTE prophylaxis Attestestation Attestation I reviewed labs, imaging, EKG, home medications and prior available records. Face to face evaluation was performed by me. I have personally examined the patient and discussed assessment and plan with the IM team. I reviewed the resident note and agree with the plan with exceptions as below. Left arm numbness Left toe numbness Chest pain at rest Type 2 diabetes mellitus with hyperglycemia Active tobacco use CT head is negative for acute changes Teleneurology was consulted and recommended aspirin and brain MRI Brain MRI showed demyelination changes. Appreciate neurology input: not a concern. Outpatient follow up Counseled the patient regarding the importance of tobacco cessation Metformin for DM upon discharge Time spent on discharge is 40 minutes
--- NOTE | 2024-04-27 19:52 | PC.NURSE ---
Discharge orders were put in for patient. Nurse removed patient's IV and went over the discharge packet with patient. Belongings were accounted for with patient. Patient is ambulatory is able to ambulate with no issue. Nurse asked patient if she has any question regarding her discharge to which she reposonded no. Patient showed no sign of distress. Patient was discharged via wheelchair.
== END 2024-04-27 19:52 | disposition home or self-care (01) | DRG 43 ==
LOC: SERX 17:40 → SERHOLD 18:52 → S2NX 04-27 02:01
PROVIDERS: Emergency Provider Emergency Medicine; PCP Family Medicine; Visit Provider Student in an Organized Health Care Education/Training Program
DX: G37.9 Demyelinating disease of central nervous system, unspecified (principal); R07.9 Chest pain, unspecified; E11.65 Type 2 diabetes mellitus with hyperglycemia; F41.9 Anxiety disorder, unspecified; E56.9 Vitamin deficiency, unspecified; F15.10 Other stimulant abuse, uncomplicated; F17.210 Nicotine dependence, cigarettes, uncomplicated; Z71.6 Tobacco abuse counseling; Z79.84 Long term (current) use of oral hypoglycemic drugs; Z79.899 Other long term (current) drug therapy
CPT/HCPCS: 36415; 70450; 70544; 80053; 80061; 80307; 81001; 83036; 83735; 83880; 84100; 84443; 84484; 84703; 85025; 85610; 85730; 92610; 93005; 97161; 99291; J1650; J1815; J3475; A9270

== ENCOUNTER 2024-09-12 15:45 | Inpatient (IN) | payer MEDICAID, SELFPAY ==
--- NOTE | 2024-09-12 | XR_ITS ---
Examination: MRI of brain without intravenous contrast. MRI brain with intravenous contrast. Date and time of exam:September 12, 2024, 1851 hours INDICATIONS: Dizziness left-sided body numbness beginning 11:00 AM this morning, numbness in left leg 3 months, demyelinating disease on brain MRI April 27, 2024, CT stroke alert today at 4:23 PM Technique: Multiple axial and sagittal images of the brain to been obtained. Siemens high-resolution 1.52 Eve short bore scanner utilized. Sagittal sections, T1 weighted images, TR 500, TE 14, are performed. Axial sections proton-density and T2-weighted images have been obtained. Inversion recovery axial images, TR 9260, TE 111, TR 2500. Diffusion weighted images, axial sections, TR 4800, TE 128, B value 1000. Axial sections, ADC map, TR 4800, TE 128. Axial and coronal images were also obtained post 17 cc gadolinium administered intravenously. Findings:: Enlargement of the sella turcica is not present. The optic chiasm and infundibular stalk are not remarkable. There is no localized enlargement of the medulla or rachele. Fourth ventricle and cerebellar tonsils appear normal in position. No subacute area of hemorrhage density is seen. Fourth ventricle is midline. Mass in the cerebellopontine angle region is not evident. 7th and 8th nerve complexes exhibit symmetry Globes are symmetrical Orbital musculature including medial lateral rectus muscles do not exhibit abnormality Increased white matter signal is evident, punctate focus increased signal in the left parietal lobe FLAIR image 14, FLAIR images 15 and 16 Effacement of the cortical sulcal markings is not identified. Mass effect upon the ventricular system is not identified. Diffusion-weighted images demonstrate no focus of restricted diffusion Contrast images demonstrate no abnormal enhancement Impression: Negative for acute hemorrhage mass effect or midline shift No acute infarct Scattered punctate foci of increased signal in the white matter, demyelinating disease
--- NOTE | 2024-09-12 15:59 | PC.NURSE ---
PT STATES HER VISION CHANGED/LKW WAS 1200PM TODAY
--- NOTE | 2024-09-12 16:08 | EDNOTE_ITS ---
Neuro Symptoms Deficit-RME/HPI General Chief Complaint: Neuro Symptoms/Deficit Stated Complaint: NUMBNESS TO LEFT SIDE XFEW MONTHS Time Seen by Provider: 09/12/24 15:58 Arrival date/time: 09/12/24 15:45 Limitations: no limitations RME / HPI RME / HPI Narrative: DR. OSULLIVAN MAIN ED EVALUATION: 43-year-old female with past medical history of diabetes mellitus on Ozempic presents to the Emergency Department with visual changes, dizziness, and worsening left sided numbness since today at 1100 hours. She reports left arm numbness and left leg numbness for the past 3 months, which are worse today; but additionally, new symptoms include right upper lip numbness, visual changes, and dizziness today. She describes her vision as foggy today, and it was reportedly normal prior to this episode. Family history is notable for diabetes and hypertension. Related Data Previous Rx's ?Medication ?Instructions ?Recorded metformin 850 mg tablet 850 mg PO BID #60 tabs 10/01 cephalexin 500 mg capsule (Keflex) 500 mg PO TID #21 c aps 10/10/19 acetaminophen 500 mg tablet 1,000 mg (2 x 500 mg) PO Q ID PRN 05/21/20 (Tylenol Extra Strength) fever or pain #60 tabs albuterol sulfate 90 mcg/actuation 2 puff inhalation Q ID #18 grams 05/21/20 aerosol inhaler albuterol sulfate 90 mcg/actuation 2 puff inhalation Q ID PRN 05/21/20 aerosol inhaler shortness of breath or wheez ing #18 grams azithromycin 250 mg tablet See Rx Instructions PO .COM PLEX #6 05/21/20 tabs ibuprofen 800 mg tablet (IBU) 800 mg PO TID PRN pain # 30 tabs 08/03/20 dicyclomine 20 mg tablet 20 mg PO BID #10 tabs Allergies Allergy/AdvReac Type Severity Reaction Status Date / Time No Known Allergies Allergy Verified 09/12/24 15:51 Review of Systems Review of Systems Systems Reviewed: All systems reviewed, normal except as documented Past Medical History Past Medical History ENDOCRINE: Positive Diabetes Mellitus Type 2 PSYCHO/SOCIAL: Positive Anxiety Social History SMOKING STATUS: Current every day smoker SUBSTANCE USE: methamphetamine ED Exam General Limitations: Present no limitations General appearance: Present alert and in no apparent distress Head Head exam: Present atraumatic, normocephalic and normal inspection Eye Eye exam: Present normal appearance, PERRL and EOMI ENT ENT exam: Present normal exam, normal oropharynx and mucous membranes moist Neck Neck exam: Present normal inspection, full ROM and trachea midline Chest Chest inspection: Present normal inspection and symmetric chest wall rise Respiratory Respiratory exam: Present normal lung sounds bilaterally Cardiovascular Cardiovascular exam: Present regular rate, normal rhythm and normal heart sounds Abdominal Exam Abdominal exam: Present soft and normal bowel sounds Extremities Exam Extremities exam: Present normal inspection and full ROM Back Exam Back exam: Present normal inspection and full ROM Neurological Exam Neurological exam: Present alert, oriented X3 and CN II-XII intact Expanded Neurological Exam Patient oriented to: Present person, place and time Speech: Present fluid speech Cerebellar function: Normal: finger to nose and heel to rothman Cerebellar function: Present normal gait Motor strength - LUE: 5/5 Motor strength - RUE: 5/5 Motor strength - LLE: 5/5 Motor strength - RLE: 5/5 Psychiatric Psychiatric exam: Present normal affect and normal mood Skin Skin exam: Present warm, dry, intact and normal color Course Quality Measures none Orders Category Date Time Status Bedside Blood Glucose NOW Care 09/12/24 16:08 Active COVID-19 Screening Questionnaire NOW Care 09/12/24 16:49 Active Counseling Center Director NOW Care 09/12/24 16:08 Active Continuous Pulse Oximetry NOW Care 09/12/24 16:08 Completed Decision to Admit X1 Care 09/12/24 16:48 Active EKG (ED ONLY) *Do not use* NOW Care 09/12/24 16:31 Completed Insert IV NOW Care 09/12/24 16:08 Active NIH Stroke Scale now Care 09/12/24 16:08 Active NPO NOW Care 09/12/24 16:08 Active Neuro Check Q15MIN Care 09/12/24 16:08 Active Nurse Swallow Screen x1 Care 09/12/24 16:08 Active Consult to Neurology / Tele-Neurology Routine Cons 09/12/24 16:[address] angio stroke protocol Stat Exams 09/12/24 16:[address] stroke protocol Stat Exams 09/12/24 16:08 Completed EKG (ED Only) Stat Exams 09/12/24 16:31 Draft Alcohol, Blood Medical Stat Lab 09/12/24 16:20 Completed B-Type Natriuretic Peptide Stat Lab 09/12/24 16:20 Completed CBC Stat Lab 09/12/24 16:20 Completed Comprehensive Metabolic Panel Stat Lab 09/12/24 16:20 Completed Drug Screen,Urine Stat Lab 09/12/24 16:08 Ordered Magnesium Stat Lab 09/12/24 16:20 Completed Partial Thromboplastin Time Stat Lab 09/12/24 16:20 Completed Prothrombin Time with INR Stat Lab 09/12/24 16:20 Completed Troponin I Stat Lab 09/12/24 16:20 Completed Urinalysis Stat Lab 09/12/24 16:08 Ordered Urine Culture Stat Lab 09/12/24 16:08 Ordered Sodium Chloride 0.9% 1000 ml [Ns] 1,000 ml Med 09/12/24 16:15 Active IV Q10H Oxygen Delivery NOW RT 09/12/24 16:08 Active Vital Signs Vital signs: Vital Signs Temperature 98.2 F 09/12/24 16:32 Pulse Rate 90 09/12/24 16:32 Respiratory Rate 21 H 09/12/24 16:32 Blood Pressure 119/73 09/12/24 16:32 Pulse Oximetry (%) 98 09/12/24 16:32 Oxygen Delivery Method Room Air 09/12/24 16:32 Neuro Symptoms / Deficit MDM Narrative MDM Narrative:: I, Brittney Arambula, nena scribing for and in the presence of Dr. Osullivan. Patient data External records reviewed:: [facility] previous records Clinical information provided by:: patient Social determinants that could affect healthcare access:: substance use (methamphetamine in past) Patient has the following chronic illnesses:: Diabetes mellitus on Ozempic. Family history is notable for diabetes and hypertension. How is presenting disease/condition affected by chronic disease/condition?: exacerbated by Evaluation data The following diagnostics were reviewed and interpreted by me:: lab results, radiology exam(s) and EKG tracing(s) (My interpretation: EKG performed at 1630 hours, sinus rhythm, rate 83, no acute changes, no STEMI) Lab and/or radiology exams considered but not ordered:: none Interpretation Summary: Procedure(s): CT stroke protocol Accession Number(s): [id number] cc: Tim Osullivan MD; Josue Squires MD~ Examination: CT brain head without contrast. 2-D sagittal coronal reconstructions Date and time of exam:September 12, 2024, 1623 hours Comparison April 26, 2024 INDICATIONS: Stroke alert, onset focal neurologic deficit today, left-sided body numbness, stroke alert April 26, 2024, brain MRI April 27, 2024 demyelinating disease pattern CTDI: vol (mGy):15.3 DLP: (mGycm):952 Technique: Multiple CT axial sections of the brain have been obtained, 5 mm slice thickness. Contrast has not been administered. 2-D sagittal, coronal reconstructions have been obtained Low dose protocols were performed. One or more of the following dose reduction techniques were used; automated exposure control, adjustment of the mA and/or KV according to patient size, use of iterative reconstruction technique. Findings: No significant ventricular enlargement. Intra-axial or extra-axial hemorrhage density is not seen. No mass effect or midline shift Basal cisterns are not remarkable. Fourth ventricle is midline. Cranial vault intact. Impression: Negative for acute hemorrhage, mass effect or midline shift Dictated By: Josue Squires MD Medications / Prescriptions Medications or Prescriptions considered but not ordered:: none Medication administrations:: Medication Administration History Sodium Chloride (Ns) 1,000 mls @ 100 mls/hr IV Q10H ARIE Stop: 10/12/24 16:14 Last Admin: 09/12/24 16:56 Dose: 100 mls/hr Documented By: DOMO see above if any Consultations Consultation(s) initiated? (list below): Yes Consultation #1 (Physician, Specialty, Details): Discussed test HPI, PMHx, lab, radiology results and/or management with resident working with the hospitalist. Will admit for further evaluation and management. Accepts patient for admission. Time: 16:38 Diagnosis Neuro Differential Diagnosis: other (diabetic neuropathy, TIA, demyelinating disease, multiple sclerosis) Most likely diagnosis given after review of the tests above:: CVA Admission Indicated Admission indicated?: indicated Admission Request Was there a request for admission?: Yes Admission Attestation Admission request attestation: Discussed case with [] from Hospitalist service regarding admission. Discussed patients ED course, exam findings, labs, and radiology results. The Hospitalist [agrees,declines] to accept the patient for admission. Disposition Plan Disposition Plan: Admit Discharge Plan Plan Patient Disposition: Admit Acute Care w/in Hospital Prescriptions/Referrals Prescriptions/Med Rec: No Action albuterol sulfate 90 mcg/actuation HFA aerosol inhaler 2 puff inhalation QID PRN (Reason: shortness of breath or wheezing) Qty: 18 0RF albuterol sulfate 90 mcg/actuation HFA aerosol inhaler 2 puff inhalation QID Qty: 18 0RF acetaminophen [Tylenol Extra Strength] 500 mg tablet 1,000 mg PO QID PRN (Reason: fever or pain) Qty: 60 0RF azithromycin 250 mg tablet See Rx Instructions .ROUTE .COMPLEX Qty: 6 0RF Rx Instructions: take 500 mg today (day 1), then 250 mg for 4 days (days 2-5) ibuprofen [IBU] 800 mg tablet 800 mg PO TID PRN (Reason: pain) Qty: 30 0RF metformin 850 mg tablet 850 mg PO BID Qty: 60 0RF cephalexin [Keflex] 500 mg capsule 500 mg PO TID Qty: 21 0RF dicyclomine 20 mg tablet 20 mg PO BID Qty: 10 0RF Problem List Clinical Impression: CVA (cerebral vascular accident) Patient/Caregiver Discharge Instructions Print Language: Swedish Stand Alone Forms: Deborah Award Info., Patient Portal Info Letter
--- NOTE | 2024-09-12 16:08 | PC.NURSE ---
Per Dr. Estes Neurology no orders for CTA at this time.
--- NOTE | 2024-09-12 16:31 | EKG_ITS ---
[facility] Test Date: 2024-09-12 Pat Name: ALPA VASQUEZ Department: Room: - Gender: Female Driver Guard: : 1980 Requested By: Tim Kinney Order Number: [id number] Reading MD: Tim Kinney Measurements Intervals [place] Rate: 83 P: 55 PA: 136 QRS: 60 QRSD: 73 T: 40 QT: 350 QTc: 412 Interpretive Statements SINUS RHYTHM Compared to ECG 04/26/2024 16:17:40 No significant changes /store/S0/[id number].pdf
[2024-09-12 16:32] VITALS: BP 119/73; PULSE 84; PULSE 90; RESP 21; TEMP 36.8; O2SAT 98
[2024-09-12 16:36] VITALS: PULSE 85; RESP 22; RESP 98
[2024-09-12 16:37] VITALS: BMI 29.6
--- NOTE | 2024-09-12 16:38 | PD.TNEURO ---
Tele Neuro Consultation Consultation Date 09/12/24 Most Recent Vital Signs Last Vital Signs Temp 98.2 F 09/12/24 16:32 Pulse 85 09/12/24 16:36 Resp 22 H 09/12/24 16:36 BP 119/73 09/12/24 16:32 Pulse Ox 98 09/12/24 16:32 O2 Del Method Room Air 09/12/24 16:32 Consultation Narrative [facility] TeleNeurology Consult Services Patient Name:???Mary Alice Best Date of :???1980 Identification Number:??? Date of Service:???09/12/2024 16:12:45 Diagnosis:?R20.2 - Paresthesia of skin Impression: ?44 y/o F with hx of DM who presents with several months of L sided sensory loss and weakness, LKN unknown but had worsening of the numbness with involvement of the face at 1100 today. She is pending outpatient neurology appointment later this month. NIHSS currently 1 for sensory loss on the left. No drift seen on the left. Deferred CTA given outside the 24 hour window. ?Of note, she had a brain MRI in April 2024 that was read as concerning for demyelinating disease. On my review, there were a few punctate areas of T2 Flair hyperintensities, primarily in the subcortical white matter on the left. Did not get it with contrast at that time. ?While this could be a subacute stroke, the prior MRI findings are interesting and warrant further investigation for dissemination in space and time to see if there are more characteristic and enhancing lesions suggestive of MS. Recommend admission for MRI brain w/wo contrast as well as MRI C and T spine w/wo contrast. No treatment recommended of as now, pending MRIs ? Our recommendations are outlined below. Recommendations: ? Stroke/Telemetry Floor ? Neuro Checks ? Bedside Swallow Eval ? DVT Prophylaxis ? IV Fluids, Normal Saline ? Head of Bed 30 Degrees ? Euglycemia and Avoid Hyperthermia (PRN Acetaminophen) ?MRI brain w/wo contrast as well as MRI C-spine and T-spine w/wo contrast ?No treatment for now - if contrast enhancing lesions suggestive of MS, can discuss steroids. Sign Out: ? Discussed with Emergency Department Provider Advanced Imaging: Advanced Imaging Deferred because: Does not meet criteria due to being out of the 24-hour window for thrombectomy Metrics: Last Known Well: Unknown Dispatch Time: 09/12/2024 16:12:45 Arrival Time: 09/12/2024 15:45:00 Initial Response Time: 09/12/2024 16:14:13Symptoms: numbness in the L face, arm and leg. . Initial patient interaction: 09/12/2024 16:15:37 NIHSS Assessment Completed: 09/12/2024 16:18:28Patient is not a candidate for Thrombolytic. Thrombolytic Medical Decision: 09/12/2024 16:18:29Patient was not deemed candidate for Thrombolytic because of following reasons: LKW outside 4.[address] Head: I personally reviewed all the CT images that were available to me and it showed: no acute intracranial process Primary Provider Notified of Diagnostic Impression and Management Plan on: 09/12/2024 16:28:35 History of Present Illness:Patient is a 44 year old Female. Patient was brought by private transportation with symptoms of numbness in the L face, arm and leg. . She reported numbness throughout the left side as well as dizziness, tunnel vision and some chest pain. This has been going on for awhile (3-4 months per patient report) but she does not have a neurologist appt until October 08. It got worse today so she came in. She is weak on the left side as well, she said it fluctuates, sometimes she can use it but it will get weaker with use. She came in specifically because of numbness to the left face that was new and started at 11 AM, per ED nurse. Past Medical History: ?Diabetes Mellitus Medications: No Anticoagulant use? No Antiplatelet use Reviewed EMR for current medications Allergies:? Reviewed Social History: Smoking: Yes Alcohol Use: No Family History: There is no family history of premature cerebrovascular disease pertinent to this consultation ROS : 14 Points Review of Systems was performed and was negative except mentioned in HPI. Past Surgical History: There Is No Surgical History Contributory To Today?s Visit Examination: BP(119/73),?Pulse(84),?Blood Glucose(125) 1A: Level of Consciousness - Alert; keenly responsive?+ 0 1B: Ask Month and Age - Both Questions Right?+ 0 1C: Blink Eyes & Squeeze Hands - Performs Both Tasks?+ 0 2: Test Horizontal Extraocular Movements - Normal?+ 0 3: Test Visual Sebastian - No Visual Loss?+ 0 4: Test Facial Palsy (Use Grimace if Obtunded) - Normal symmetry?+ 0 5A: Test Left Arm Motor Drift - No Drift for 10 Seconds?+ 0 5B: Test Right Arm Motor Drift - No Drift for 10 Seconds?+ 0 6A: Test Left Leg Motor Drift - No Drift for 5 Seconds?+ 0 6B: Test Right Leg Motor Drift - No Drift for 5 Seconds?+ 0 7: Test Limb Ataxia (FNF/Heel-De La O) - No Ataxia?+ 0 8: Test Sensation - Mild-Moderate Loss: Less Sharp/More Dull?+ 1 9: Test Language/Aphasia - Normal; No aphasia?+ 0 10: Test Dysarthria - Normal?+ 0 11: Test Extinction/Inattention - No abnormality?+ 0 NIHSS Score:?1 Pre-Morbid Modified Elsie Scale:0 Points = No symptoms at all Spoke with :?Dr. Bangura This consult was conducted in real time using interactive audio and video technology. Patient was informed of the technology being used for this visit and agreed to proceed. Patient located in hospital and provider located at home/office setting. Patient is being evaluated for possible acute neurologic impairment and high probability of imminent or life-threatening deterioration. I spent total of 35 minutes providing care to this patient, including time for face to face visit via telemedicine, review of medical records, imaging studies and discussion of findings with providers, the patient and/or family. Dr Brittni Borja [facility] For Inpatient follow-up with [facility] physician please call [facility] at . As we are not an outpatient service for any post hospital discharge needs please contact the hospital for assistance. If you have any questions for the [facility] physicians or need to reconsult for clinical or diagnostic changes please contact us via [facility] at . Signature :Guera Borja
[2024-09-12 16:48] LABS: Basophils # (Auto) 0.0 Thou/mm3 (0.0-0.2); Basophils % (Auto) 0 % (0-2.5); Eosinophils # (Auto) 0.1 Thou/mm3 (0.0-0.5); Eosinophils % (Auto) 1 % (0-10); Hematocrit 36.0 % (36.0-46.0); Hemoglobin 11.8 g/dL (12.0-16.0); Immature Granulocytes Auto 0.03 Thou/mm3 (0.00-0.00); Lymphocytes # (Auto) 3.0 Thou/mm3 (1.0-4.8); Lymphocytes % (Auto) 33 % (10-50); Mean Corpuscular HGB Conc 32.8 g/dl (31.0-37.0); Mean Corpuscular Hemoglobin 25.3 pg (25.0-35.0); Mean Corpuscular Volume 77 fL (80-100); Monocytes # (Auto) 0.8 Thou/mm3 (0.0-0.8); Monocytes % (Auto) 8 % (0-12); Neutrophils # (Auto) 5.2 Thou/mm3 (1.8-7.7); Neutrophils % (Auto) 57 % (37-80); Nucleated Red Blood Cell # 0.00 Thou/mm3 (0.00-0.00); Nucleated Red Blood Cell % 0 /100 WBC (0); Platelet Count 342 Thou/mm3 (140-440); RDW Standard Deviation 38.2 fL (36.4-46.3); Red Blood Count 4.67 Miln/mm3 (4.00-5.20); White Blood Count 9.1 Thou/mm3 (3.6-11.0)
[2024-09-12] MEDS: SODIUM CHLORIDE 0.9% 1000 ML 1,000 ML 100 ML IV (16:56)
[2024-09-12 17:15] LABS: INR 1.1 (0.9-1.3); Partial Thromboplastin Time 24.6 Seconds (22.0-36.0); Prothrombin Time 11.7 Seconds (9.0-12.2)
[2024-09-12 17:23] LABS: Alanine Aminotransferase < 7 U/L (10-49); Albumin, Serum 4.8 gm/dL (3.5-5.0); Albumin/Globulin Ratio 1.9 (1.2-2.2); Alcohol, Blood Medical < 3.0 mg/dL (0-10.0); Alkaline Phosphatase 71 U/L (46-116); Anion Gap 8 (7-16); Aspartate Amino Transferase 10 U/L (0-34); BUN/Creatinine Ratio 17 Ratio (12-20); Bilirubin,Total 0.4 mg/dL (0.3-1.2); Blood Urea Nitrogen 17 mg/dL (9-23); Calcium 9.7 mg/dL (8.3-10.6); Calcium (Corrected) 9.7 mg/dL (8.5-10.1); Carbon Dioxide 23.8 mMol/L (20.0-31.0); Chloride 106 mMol/L (98-107); Creatinine (Component) 1.0 mg/dL (0.6-1.3); Estimated Creatinine Clearance 79.1 mL/min (>60); Globulin 2.5 gm/dL (2.3-3.5); Glucose 116 mg/dL (74-106); Magnesium 1.4 mg/dL (1.6-2.6); Osmolality,Calculated 278 (275-295); Potassium 4.3 mMol/L (3.4-5.1); Sodium 138 mMol/L (136-145); Total Protein 7.3 gm/dL (5.7-8.2); Troponin I < 0.002 ng/mL (0.0-0.045); eGFR > 60 See Note
[2024-09-12 17:29] LABS: B-Type Natriuretic Peptide < 20 pg/mL (0-100)
[2024-09-12 18:13] LABS: Collection Type, Urine Catheter
[2024-09-12 18:20] VITALS: BP 130/86; PULSE 82; RESP 16; TEMP 36.9; O2SAT 100
[2024-09-12 18:30] LABS: Amphetamine/Methamp Scrn,U Negative (Negative); Barbiturate Screen,Urine Negative (Negative); Benzodiazepines Screen,Urine Negative (Negative); Benzoylecgonine Screen, Ur Negative (Negative); Fentanyl Screen,Urine Negative (Negative); Opiate Screen,Urine Negative (Negative); THC Screen,Urine Negative (Negative)
[2024-09-12 18:39] LABS: Amorphous Crystals,Urine Present (Absent); Bacteria,Urine 4+; Bilirubin,Urine Negative (Negative); Blood,Urine Negative (Negative); Clarity,Urine Turbid (Clear/Hazy); Color,Urine Lt-Yellow (Lt Yel-Yel); Glucose, Urine Negative (Negative); Hyaline Casts,Urine < 1 /hpf (0-1); Ketones,Urine Negative (Negative); Leukocyte Esterase,Urine Positive (Negative); Nitrite,Urine Positive (Negative); PH,Urine 6.0 (5.0-7.0); Protein,Urine Negative (Neg - Trace); RBC,Urine 6 /hpf (0-3); Specific Gravity,Urine 1.014 (1.001-1.035); Squamous Epithelial Cell,Urine 17 /hpf (0-5); Urobilinogen,Urine Negative mg/dL (0.0-1.0); WBC,Urine 14 /hpf (0-5)
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
[2024-09-12 20:01] VITALS: PULSE 86; RESP 20; RESP 98
[2024-09-12 20:52] VITALS: BP 133/88; PULSE 78; RESP 24; TEMP 36.3; O2SAT 96
[2024-09-12] MEDS: LACTULOSE SYRUP 20 GM/30 ML UDC PO (22:46)
[2024-09-12] MEDS: NICOTINE PATCH 14 MG/24 HR PATCH.TD24 TOP (22:46)
[2024-09-13] VITALS (10 sets, daily range): BP systolic 111–120; BP diastolic 60–78; PULSE 71–90; RESP 16–98; TEMP 36.1–36.3; O2SAT 95–98
[2024-09-13] MEDS: ACETAMINOPHEN 325 MG TABLET 650 MG PO (02:41)
[2024-09-13] MEDS: SODIUM CHLORIDE 0.9% 1000 ML 1,000 ML 100 ML IV ×2 (06:28→16:43)
[2024-09-13 07:25] LABS: Basophils # (Auto) 0.0 Thou/mm3 (0.0-0.2); Basophils % (Auto) 0 % (0-2.5); Eosinophils # (Auto) 0.1 Thou/mm3 (0.0-0.5); Eosinophils % (Auto) 1 % (0-10); Hematocrit 31.5 % (36.0-46.0); Hemoglobin 10.3 g/dL (12.0-16.0); Immature Granulocytes Auto 0.02 Thou/mm3 (0.00-0.00); Lymphocytes # (Auto) 1.9 Thou/mm3 (1.0-4.8); Lymphocytes % (Auto) 34 % (10-50); Mean Corpuscular HGB Conc 32.7 g/dl (31.0-37.0); Mean Corpuscular Hemoglobin 25.3 pg (25.0-35.0); Mean Corpuscular Volume 77 fL (80-100); Monocytes # (Auto) 0.6 Thou/mm3 (0.0-0.8); Monocytes % (Auto) 11 % (0-12); Neutrophils # (Auto) 3.0 Thou/mm3 (1.8-7.7); Neutrophils % (Auto) 53 % (37-80); Nucleated Red Blood Cell # 0.00 Thou/mm3 (0.00-0.00); Nucleated Red Blood Cell % 0 /100 WBC (0); Platelet Count 288 Thou/mm3 (140-440); RDW Standard Deviation 38.2 fL (36.4-46.3); Red Blood Count 4.07 Miln/mm3 (4.00-5.20); White Blood Count 5.7 Thou/mm3 (3.6-11.0)
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
[2024-09-13 07:55] LABS: Sed Rate (ESR) 6 mm/hr (0-20)
[2024-09-13 08:07] LABS: Alanine Aminotransferase < 7 U/L (10-49); Albumin, Serum 3.9 gm/dL (3.5-5.0); Albumin/Globulin Ratio 2.0 (1.2-2.2); Alkaline Phosphatase 59 U/L (46-116); Anion Gap 7 (7-16); Aspartate Amino Transferase 10 U/L (0-34); BUN/Creatinine Ratio 14 Ratio (12-20); Bilirubin,Total 0.4 mg/dL (0.3-1.2); Blood Urea Nitrogen 11 mg/dL (9-23); C-Reactive Protein < 0.5 mg/dL (0.0-0.9); Calcium 8.6 mg/dL (8.3-10.6); Calcium (Corrected) 8.7 mg/dL (8.5-10.1); Carbon Dioxide 22.4 mMol/L (20.0-31.0); Cardiac Risk Estimate 3.5 RATIO (3.7-5.6); Chloride 111 mMol/L (98-107); Cholesterol 108 mg/dL (132-200); Creatinine (Component) 0.8 mg/dL (0.6-1.3); Estimated Creatinine Clearance 98.8 mL/min (>60); Globulin 2.0 gm/dL (2.3-3.5); Glucose 123 mg/dL (74-106); HDL Cholesterol 31 mg/dL (40-60); LDL Cholesterol,Calculated 63 mg/dL (0-130); Magnesium 1.8 mg/dL (1.6-2.6); Osmolality,Calculated 279 (275-295); Phosphorous 3.5 mg/dL (2.4-5.1); Potassium 4.3 mMol/L (3.4-5.1); Sodium 140 mMol/L (136-145); Thyroid Stimulating Hormone 2.40 uIU/mL (0.55-4.78); Total Protein 5.9 gm/dL (5.7-8.2); Triglycerides 72 mg/dL (30-150); eGFR > 60 See Note
[2024-09-13 08:17] LABS: Glucose Estimated Average 143 mg/dL (80-131); Hemoglobin A1C 6.6 % Hgb (4.8-6.0)
[2024-09-13 08:31] LABS: INR 1.1 (0.9-1.3); Partial Thromboplastin Time 24.2 Seconds (22.0-36.0); Prothrombin Time 11.7 Seconds (9.0-12.2)
--- NOTE | 2024-09-13 09:10 | PC.NURSE ---
SPEECH AT BEDSIDE TO ASSESS PT. POC DISCUSSED.
[2024-09-13] MEDS: ENOXAPARIN SOD INJ 40 MG/0.4 ML SYRINGE SC (09:15)
--- NOTE | 2024-09-13 10:40 | PC.SS ---
Mary Alice Best is a [age]year-old female admitted to Med Surg for CVA. SS conducted bedside contact with the patient to complete initial assessment and to discuss discharge planning. Role and reason explained. Patient confirmed demographic information. Patient identifies her Life Partner Richard Mandujano [phone] as her surrogate decision maker. Pt states she lives with family and is able to complete all ADL?s independently. No need for any source of DME. Pts PCP is Og arguello [facility] last visit 3 months ago. Pharmacy of choice is [facility]. Discharge options discussed and the pt wishes to return home. Family will provide transportation upon DC. No further intervention required at this time, social media marketer would be available to address any further concerns. DC Plan: Home Contact: Richard [place] Address: Confirmed on face sheet PCP: Eladio
[2024-09-13] MEDS: ACETAMIN/CAFF/BUTAL (Fioricet) 1 TAB PO (10:57)
[2024-09-13] MEDS: INSULIN LISPRO (AdmeLOG) 1 UNIT/0.01 ML UNIT SC (11:44)
--- NOTE | 2024-09-13 14:37 | PD.TNEUROPRO ---
Tele Neuro Progress Note Progress Note Date 09/13/24 Most Recent Vital Signs Last Vital Signs Temp 97.0 F 09/13/24 12:00 Pulse 79 09/13/24 12:00 Resp 19 09/13/24 12:00 BP 120/60 09/13/24 12:00 Pulse Ox 97 09/13/24 12:00 O2 Del Method Room Air 09/13/24 12:00 Laboratory-Coagulation Panel PT 11.7 Seconds (9.0-12.2) 09/13/24 06:30 INR 1.1 (0.9-1.3) 09/13/24 06:30 APTT 24.2 Seconds (22.0-36.0) 09/13/24 06:30 Progress Note Narrative [facility] TeleNeurology Consult Services Routine Consult Follow-Up Patient Name:???Mary Alice Best Date of :???1980 Identification Number:??? Date of Service:???09/13/2024 13:35:45 Diagnosis?R20.2 - Paresthesia of skin Impression 44 y/o F with hx of DM who presents with several months of L sided sensory loss and weakness,. her chronic symptoms mainly affect the left upper and lower extremity and she has been having gait imbalance and decreased frequency of bowel movements with no incontinence. She has only had 2 brief episodes where she had left facial involvement that was around the jawline and also the left eye with associated dizziness. Brain MRI does not show any evidence of stroke. On examination she has slowed rapid movements of the left lower extremity and decreased clearance of the left lower extremity with ambulation which could still be signs of an upper motor neuron issue such as spine pathology. As result, would recommend pursuing C and T-spine MRI for further evaluation. Recommendations Toradol due to headaches C and T-spine MRI with and without contrast to evaluate for myelopathy PT and OT B12, RPR Low threshold to consider LP pending review of MRI ? Our recommendations are outlined below Nursing Recommendations :Neuro checks q4 hrs x 24 hrs and then per shift Consultations :Physical therapy/Occupational therapy DVT Prophylaxis :Choice of Primary Team Dispositions :Neurology will follow Subjective Patient was brought by private transportation with symptoms of numbness in the L face, arm and leg. . She reported numbness throughout the left side as well as dizziness, tunnel vision and some chest pain. This has been going on for awhile (3-4 months per patient report) but she does not have a neurologist appt until October 08. It got worse today so she came in. She is weak on the left side as well, she said it fluctuates, sometimes she can use it but it will get weaker with use. She came in specifically because of numbness to the left face that was new and started at 11 AM, per ED nurse. Hospital Course 09/13- it has been the arm and leg the last 3 months but she only has tingling of the L lower face and L eye and L eye tunnel vision the day of presentation. She has been under significant stress over the last few months. It lasted for 4 hours. She has had something similars. She only has bowel movements only once a month Imaging Brain mri wo : Negative for acute hemorrhage mass effect or midline shift No acute infarct Scattered punctate foci of increased signal in the white matter, demyelinating disease Labs .tsh 2.4 ldl 6 3 a1c 6.6 ? ? Examination BP(120/60),?Pulse(79),?Temp(97),?Resp(19), 1A: Level of Consciousness - Alert; keenly responsive?+ 0 1B: Ask Month and Age - Both Questions Right?+ 0 1C: Blink Eyes & Squeeze Hands - Performs Both Tasks?+ 0 2: Test Horizontal Extraocular Movements - Normal?+ 0 3: Test Visual Sebastian - No Visual Loss?+ 0 4: Test Facial Palsy (Use Grimace if Obtunded) - Normal symmetry?+ 0 5A: Test Left Arm Motor Drift - No Drift for 10 Seconds?+ 0 5B: Test Right Arm Motor Drift - No Drift for 10 Seconds?+ 0 6A: Test Left Leg Motor Drift - No Drift for 5 Seconds?+ 0 6B: Test Right Leg Motor Drift - No Drift for 5 Seconds?+ 0 7: Test Limb Ataxia (FNF/Heel-De La O) - No Ataxia?+ 0 8: Test Sensation - Mild-Moderate Loss: Less Sharp/More Dull?+ 1 9: Test Language/Aphasia - Normal; No aphasia?+ 0 10: Test Dysarthria - Normal?+ 0 11: Test Extinction/Inattention - No abnormality?+ 0 NIHSS Score:?1 NIHSS Free Text :?mildly increased tone in the LUE narrow based, reduced clearance of the toes on the left blurry vision OU Reduced sensation on the L face, arm, and legs ? This consult was conducted in real time using interactive audio and video technology. Patient was informed of the technology being used for this visit and agreed to proceed. Patient located in hospital and provider located at home/office setting. Telehealth Neurology consultation was provided. I spent 30 minutes providing telehealth care. This includes time spent for face to face visit via telemedicine, review of medical records, imaging studies and discussion of findings with providers, the patient and/or family. Dr Leila Osborne [facility] For Inpatient follow-up with [facility] physician please call [facility] at . As we are not an outpatient service for any post hospital discharge needs please contact the hospital for assistance. If you have any questions for the [facility] physicians or need to reconsult for clinical or diagnostic changes please contact us via [facility] at Signature :?Leila Osborne ?
[2024-09-13] MEDS: KETOROLAC INJ 30 MG/ML VIAL IVP (14:58)
--- NOTE | 2024-09-13 16:12 | PC.SS ---
Rounding: Pending MRI and Neur reccs, DC plan home 24hrs
[2024-09-13 16:38] LABS: MHATP/TP-PA* See Sep Rpt; Syphilis Reactive (Nonreactive)
[2024-09-13] MEDS: HYDROcodone/APAP 5/325 TABLET 1 TAB PO (20:05)
[2024-09-14] VITALS (11 sets, daily range): BP systolic 120–146; BP diastolic 74–88; PULSE 68–85; RESP 17–100; TEMP 36–36.4; O2SAT 96–100
[2024-09-14] MEDS: SODIUM CHLORIDE 0.9% 1000 ML 1,000 ML 100 ML IV (02:21)
[2024-09-14 05:43] LABS: Vitamin B12 217 pg/mL (211-911)
[2024-09-14 06:22] LABS: Basophils # (Auto) 0.0 Thou/mm3 (0.0-0.2); Basophils % (Auto) 0 % (0-2.5); Eosinophils # (Auto) 0.2 Thou/mm3 (0.0-0.5); Eosinophils % (Auto) 3 % (0-10); Hematocrit 29.6 % (36.0-46.0); Hemoglobin 9.7 g/dL (12.0-16.0); Immature Granulocytes Auto 0.01 Thou/mm3 (0.00-0.00); Lymphocytes # (Auto) 1.5 Thou/mm3 (1.0-4.8); Lymphocytes % (Auto) 28 % (10-50); Mean Corpuscular HGB Conc 32.8 g/dl (31.0-37.0); Mean Corpuscular Hemoglobin 25.8 pg (25.0-35.0); Mean Corpuscular Volume 79 fL (80-100); Monocytes # (Auto) 0.4 Thou/mm3 (0.0-0.8); Monocytes % (Auto) 8 % (0-12); Neutrophils # (Auto) 3.2 Thou/mm3 (1.8-7.7); Neutrophils % (Auto) 61 % (37-80); Nucleated Red Blood Cell # 0.00 Thou/mm3 (0.00-0.00); Nucleated Red Blood Cell % 0 /100 WBC (0); Platelet Count 231 Thou/mm3 (140-440); RDW Standard Deviation 38.3 fL (36.4-46.3); Red Blood Count 3.76 Miln/mm3 (4.00-5.20); White Blood Count 5.3 Thou/mm3 (3.6-11.0)
--- NOTE | 2024-09-14 06:35 | PC.NURSE ---
Pt having a headache and not being relieve by Tylenol, fioricet. Pt asking to have norco, meds given as per MD order.
[2024-09-14 07:10] LABS: Alanine Aminotransferase 9 U/L (10-49); Albumin, Serum 3.7 gm/dL (3.5-5.0); Albumin/Globulin Ratio 1.9 (1.2-2.2); Alkaline Phosphatase 59 U/L (46-116); Anion Gap 6 (7-16); Aspartate Amino Transferase 13 U/L (0-34); BUN/Creatinine Ratio 13 Ratio (12-20); Bilirubin,Total 0.3 mg/dL (0.3-1.2); Blood Urea Nitrogen 10 mg/dL (9-23); Calcium 8.6 mg/dL (8.3-10.6); Calcium (Corrected) 8.8 mg/dL (8.5-10.1); Carbon Dioxide 22.7 mMol/L (20.0-31.0); Chloride 111 mMol/L (98-107); Creatinine (Component) 0.8 mg/dL (0.6-1.3); Estimated Creatinine Clearance 98.8 mL/min (>60); Globulin 2.0 gm/dL (2.3-3.5); Glucose 147 mg/dL (74-106); Magnesium 1.3 mg/dL (1.6-2.6); Osmolality,Calculated 281 (275-295); Phosphorous 3.8 mg/dL (2.4-5.1); Potassium 4.1 mMol/L (3.4-5.1); Sodium 140 mMol/L (136-145); Total Protein 5.7 gm/dL (5.7-8.2); eGFR > 60 See Note
[2024-09-14] MEDS: ENOXAPARIN SOD INJ 40 MG/0.4 ML SYRINGE SC (08:16)
[2024-09-14] MEDS: Magnesium Sulfate 4 GM Ivpb 4 GM/50 ML BAG IV (08:16)
[2024-09-14] MEDS: INSULIN LISPRO (AdmeLOG) 1 UNIT/0.01 ML UNIT SC (11:32)
[2024-09-14] MEDS: cefTRIAXone/D5w 1gm IV premix 1 GM/50 ML BAG IV (11:36)
--- NOTE | 2024-09-14 11:44 | PC.PT ---
PT eval only. Patient was xI with bed mobility, transfers, and ambulation. Patient is safe to ambulate to the bathroom and in the halls with no AD and no staff assist. RN made aware.
--- NOTE | 2024-09-14 12:32 | PC.NURSE ---
DR. MONTANEZ AND TEAM ROUNDING, POC DISCUSSED. PT WORKED WITH PHYSICAL THERAPY.
--- NOTE | 2024-09-14 14:36 | PC.SS ---
Rounding: Pending MRI, DC 1-2 days going Home
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
--- NOTE | 2024-09-14 16:37 | ESPR_ITS ---
Tele Neuro Progress Note Progress Note Date 09/14/24 [facility] Tele[facility]urology Progress Note Date of Service 09/14/2024 Presentation: Based on previous neurology note(s) : 44 y/o F with hx of DM who presents with several months of L sided sensory loss and weakness,. her chronic symptoms mainly affect the left upper and lower extremity and she has been having gait imbalance and decreased frequency of bowel movements with no incontinence. She has only had 2 brief episodes where she had left facial involvement that was around the jawline and also the left eye with associated dizziness. Brain MRI does not show any evidence of stroke. On examination she has slowed rapid movements of the left lower extremity and decreased clearance of the left lower extremity with ambulation which could still be signs of an upper motor neuron issue such as spine pathology. As result, would recommend pursuing C and T-spine MRI for further evaluation Interval history: brain MRI with and without no acute finding. 09/14/2024: nursing does not report any significant new events overnight. Impression: left sided numbness , etiology is being investigated Recommendations: (Primary Team to order Controlled Medications) Unless specifically noted I Agree with Impression and Plan from previous Neurology note/consult. 1- C and T-spine MRI with and without contrast to evaluate for myelopathy 2- consult ID for RPR result 3- scheduled to get nerve conduction studies as outpatient. [facility] Neurologist will follow up with results. Please contact [facility] Navigator to reach me if further questions/concerns arise. Examination: Examination done through interactive audio and video telecommunications with the assist of bedside nursing (when available) awake, alert speech no aphasia Extraocular movements intact face symmetric arms no drift (10s) coordination intact in finger to nose reports numbness left arm and leg Patient / Family was informed the Neurology Consult would occur via TeleHealth consult by way of interactive audio and video telecommunications and consented to receiving care in this manner. Patient is being evaluated for possible acute neurologic impairment and high probability of imminent or life - threatening deterioration. I spent total of 15 minutes providing care to this patient, including time for face to face visit via telemedicine, review of medical records, imaging studies and discussion of findings with providers, the patient and / or family. Dr Phani Huang [facility] For Inpatient follow-up with [facility] physician please call [facility] . This is not an outpatient service. Post hospital discharge, please contact hospital directly. Please do not communicate with [facility] physicians via secure chat. If you have any questions, Please contact [facility]. Please call or reconsult our service if there are any clinical or diagnostic changes. Most Recent Vital Signs Last Vital Signs Temp 97.6 F 09/14/24 15:40 Pulse 82 09/14/24 15:40 Resp 18 09/14/24 15:40 BP 132/76 H 09/14/24 15:40 Pulse Ox 99 09/14/24 15:40 O2 Del Method Room Air 09/14/24 15:40 Laboratory-Coagulation Panel PT 11.7 Seconds (9.0-12.2) 09/13/24 06:30 INR 1.1 (0.9-1.3) 09/13/24 06:30 APTT 24.2 Seconds (22.0-36.0) 09/13/24 06:30
[2024-09-14] MEDS: DIAZEPAM INJ 5 MG/ML VIAL 2 ML 2.5 MG IVP (19:58)
[2024-09-15] VITALS: BP 129/85; PULSE 74; PULSE 76; RESP 15; TEMP 36.4; O2SAT 97
--- NOTE | 2024-09-15 | XR_ITS ---
Examination: MRI thoracic spine, without intravenous contrast. MRI thoracic spine , with intravenous contrast. Exam date and time: September 15, 2024 0955 hours INDICATIONS: Back pain left leg numbness 3 months, clinical diagnosis demyelinating disease Technique: Multiple axial, sagittal and coronal images of the thoracic spine have been obtained with the Siemens high-resolution 1.5 Eve MRI scanner. Images obtained included T2 weighted fat suppressed sagittal sections, TR 3500, TE 46, T2 weighted coronal fat suppressed images, TR 3050, TE 84, T2-weighted transverse fat suppressed images, TR 30-60, TE 63, proton density transverse images, TR 4720, TE 46, and T1 weighted coronal images, TR 560, TE 13. Axial, sagittal and coronal images are obtained post intravenous injection 17 cc gadolinium. Findings: Adequate alignment thoracic vertebral bodies on the lateral view Moderate chronic compression T12 No thoracic acute fracture Moderate diffuse thoracic degenerative disc disease and diffuse thoracic disc desiccation Subtle linear increased signal in the thoracic cord 1 mm in thickness T7-T8 2 mm right paracentral disc bulge no impingement upon the thoracic cord Postcontrast images demonstrate no abnormal osseous epidural or thoracic cord enhancement IMPRESSION: Moderate chronic compression T12 No acute thoracic fracture Moderate diffuse thoracic degenerative disc disease T7-T8 2 mm right paracentral disc bulge Subtle linear increased signal in the thoracic cord, 1 mm in thickness, clinical correlation advised Postcontrast images demonstrate no abnormal osseous epidural or thoracic cord enhancement
--- NOTE | 2024-09-15 | XR_ITS ---
Examination: MRI cervical spine, without intravenous contrast. MRI cervical spine , with intravenous contrast. Exam date and time: September 15, 2024 0955 hours INDICATIONS: Neck pain with left arm numbness beginning 3 months ago Technique: Multiple axial, sagittal and coronal images of the cervical spine have been obtained with the Siemens high-resolution 1.5 Eve MRI scanner. Images obtained included T2 weighted fat suppressed sagittal sections, TR 3500, TE 46, T2 weighted coronal fat suppressed images, TR 3050, TE 84, T2-weighted transverse fat suppressed images, TR 30-60, TE 63, proton density transverse images, TR 4720, TE 46, and T1 weighted coronal images, TR 560, TE 13. Axial, sagittal and coronal images are obtained post intravenous injection 17 cc gadolinium. Findings: Adequate alignment cervical vertebral bodies No cervical fracture Postcontrast images demonstrate no abnormal enhancing osseous epidural or cervical cord areas Moderate disc narrowing C4-C5, C5-C6 Precontrast images do demonstrate mild linear increased signal in the cervical cord, sagittal image 8 C2-C3 no disc protrusion C3-C4 no disc protrusion C4-C5 2 mm central subarticular osteophyte disc complex C5-C6 4 mm central subarticular osteophyte disc complex, moderate bilateral neural foraminal stenosis C6-C7 4 mm central right paracentral osteophyte disc complex C7-T1 no disc protrusion IMPRESSION: Precontrast sagittal image 8 demonstrates subtle linear focus of increased signal in the cervical cord from the C4 to the C7 level, this could relate to early demyelinating disease, or early syrinx cavity, clinical correlation advised and consider 3 month follow-up MRI cervical spine C5-C6 4 mm central subarticular osteophyte disc complex, moderate bilateral neural foraminal stenosis C6-C7 4 mm central right paracentral osteophyte disc complex
[2024-09-15 04:00] VITALS: BP 117/76; PULSE 102; PULSE 71; RESP 15; TEMP 36.1; O2SAT 96
[2024-09-15 05:52] VITALS: BMI 29.5
[2024-09-15 06:13] LABS: Basophils # (Auto) 0.0 Thou/mm3 (0.0-0.2); Basophils % (Auto) 0 % (0-2.5); Eosinophils # (Auto) 0.2 Thou/mm3 (0.0-0.5); Eosinophils % (Auto) 3 % (0-10); Hematocrit 31.5 % (36.0-46.0); Hemoglobin 10.4 g/dL (12.0-16.0); Immature Granulocytes Auto 0.01 Thou/mm3 (0.00-0.00); Lymphocytes # (Auto) 2.0 Thou/mm3 (1.0-4.8); Lymphocytes % (Auto) 30 % (10-50); Mean Corpuscular HGB Conc 33.0 g/dl (31.0-37.0); Mean Corpuscular Hemoglobin 25.4 pg (25.0-35.0); Mean Corpuscular Volume 77 fL (80-100); Monocytes # (Auto) 0.5 Thou/mm3 (0.0-0.8); Monocytes % (Auto) 8 % (0-12); Neutrophils # (Auto) 3.9 Thou/mm3 (1.8-7.7); Neutrophils % (Auto) 59 % (37-80); Nucleated Red Blood Cell # 0.00 Thou/mm3 (0.00-0.00); Nucleated Red Blood Cell % 0 /100 WBC (0); Platelet Count 235 Thou/mm3 (140-440); RDW Standard Deviation 37.3 fL (36.4-46.3); Red Blood Count 4.09 Miln/mm3 (4.00-5.20); White Blood Count 6.6 Thou/mm3 (3.6-11.0)
[2024-09-15 07:05] LABS: Alanine Aminotransferase 7 U/L (10-49); Albumin, Serum 4.0 gm/dL (3.5-5.0); Albumin/Globulin Ratio 1.9 (1.2-2.2); Alkaline Phosphatase 63 U/L (46-116); Anion Gap 7 (7-16); Aspartate Amino Transferase 10 U/L (0-34); BUN/Creatinine Ratio 11 Ratio (12-20); Bilirubin,Total 0.3 mg/dL (0.3-1.2); Blood Urea Nitrogen 9 mg/dL (9-23); Calcium 8.7 mg/dL (8.3-10.6); Calcium (Corrected) 8.7 mg/dL (8.5-10.1); Carbon Dioxide 23.3 mMol/L (20.0-31.0); Chloride 109 mMol/L (98-107); Creatinine (Component) 0.8 mg/dL (0.6-1.3); Estimated Creatinine Clearance 98.8 mL/min (>60); Globulin 2.1 gm/dL (2.3-3.5); Glucose 149 mg/dL (74-106); Magnesium 1.5 mg/dL (1.6-2.6); Osmolality,Calculated 279 (275-295); Phosphorous 3.3 mg/dL (2.4-5.1); Potassium 4.1 mMol/L (3.4-5.1); Sodium 139 mMol/L (136-145); Total Protein 6.1 gm/dL (5.7-8.2); eGFR > 60 See Note
[2024-09-15 07:14] VITALS: PULSE 61; RESP 18; RESP 96; O2SAT 96
[2024-09-15 08:00] VITALS: BP 120/84; PULSE 74; PULSE 87; RESP 18; TEMP 36.3; O2SAT 96
[2024-09-15] MEDS: ENOXAPARIN SOD INJ 40 MG/0.4 ML SYRINGE SC (08:32)
[2024-09-15] MEDS: cefTRIAXone/D5w 1gm IV premix 1 GM/50 ML BAG IV (08:32)
[2024-09-15] MEDS: DIAZEPAM INJ 5 MG/ML VIAL 2 ML 2.5 MG IVP (09:34)
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
[2024-09-15] MEDS: Magnesium Sulfate 2 GM Ivpb 2 GM/50 ML BAG IV (11:17)
--- NOTE | 2024-09-15 11:33 | PD.TNEUROPRO ---
Tele Neuro Progress Note Progress Note Date 09/15/24 [facility] Tele[facility]urology Progress Note Date of Service 09/15/2024 Presentation: Based on previous neurology note(s) : 44 y/o F with hx of DM who presents with several months of L sided sensory loss and weakness,. her chronic symptoms mainly affect the left upper and lower extremity and she has been having gait imbalance and decreased frequency of bowel movements with no incontinence. She has only had 2 brief episodes where she had left facial involvement that was around the jawline and also the left eye with associated dizziness. Brain MRI does not show any evidence of stroke. On examination she has slowed rapid movements of the left lower extremity and decreased clearance of the left lower extremity with ambulation which could still be signs of an upper motor neuron issue such as spine pathology. As result, would recommend pursuing C and T-spine MRI for further evaluation Interval history: brain MRI with and without no acute finding. 09/14/2024: nursing does not report any significant new events overnight. 09/15: nursing does not report any significant new events overnight. Impression: left sided numbness , etiology is being investigated Recommendations: (Primary Team to order Controlled Medications) Unless specifically noted I Agree with Impression and Plan from previous Neurology note/consult. 1- reviewed brain, C,T spine MRIs, there is some concern for demyelination but since there is no enhancing lesion (active demyelination) no steroid is recommended, given nonspecificity of lesions I explained that next step in workup would be CSF testing but that can be done as outpatient and patient decided to follow up with outpatient neurology for this. 2- primary team to address RPR result 3- scheduled to get nerve conduction studies as outpatient. Neurology will sign off. Follow up with outpatient neurology in 2-3 weeks. Please contact [facility] Nav[facility] to reach me if further questions/concerns arise. Examination: Examination done through interactive audio and video telecommunications with the assist of bedside nursing (when available) awake, alert speech no aphasia Extraocular movements intact face symmetric arms no drift (10s) coordination intact in finger to nose reports numbness left arm and leg but improved Patient / Family was informed the Neurology Consult would occur via TeleHealth consult by way of interactive audio and video telecommunications and consented to receiving care in this manner. Patient is being evaluated for possible acute neurologic impairment and high probability of imminent or life - threatening deterioration. I spent total of 15 minutes providing care to this patient, including time for face to face visit via telemedicine, review of medical records, imaging studies and discussion of findings with providers, the patient and / or family. Dr Phani Huang [facility] For Inpatient follow-up with [facility] physician please call [facility] . This is not an outpatient service. Post hospital discharge, please contact hospital directly. Please do not communicate with [facility] physicians via secure chat. If you have any questions, Please contact [facility]. Please call or reconsult our service if there are any clinical or diagnostic changes. Most Recent Vital Signs Last Vital Signs Temp 97.4 F 09/15/24 08:00 Pulse 74 09/15/24 08:00 Resp 18 09/15/24 08:00 BP 120/84 09/15/24 08:00 Pulse Ox 96 09/15/24 08:00 O2 Del Method Room Air 09/15/24 08:00 Laboratory-Coagulation Panel PT 11.7 Seconds (9.0-12.2) 09/13/24 06:30 INR 1.1 (0.9-1.3) 09/13/24 06:30 APTT 24.2 Seconds (22.0-36.0) 09/13/24 06:30
[2024-09-15] MEDS: INSULIN LISPRO (AdmeLOG) 1 UNIT/0.01 ML UNIT SC (11:35)
--- NOTE | 2024-09-15 11:41 | ESDS_ITS ---
<Statement entered by May Gonzalez MD - 09/16/24 15:10> I have reviewed the note and agree with the resident's assessment & plan with exceptions as below. I have personally reviewed labs, imaging, home meds/prior records, examined the patient, formulated and discussed management plan with the IM team. Patient examined at bedside today. Patient had C-spine and T-spine MRI which showed possible demyelination of disease. Recommendation for MRI within the next 3 months to be done with outpatient PCP. Patient to also follow-up on confirmatory syphilis testing outpatient as well. Patient was then discharged with the instructions listed below. aMy Gonzalez, PGY-2 Internal Medicine Planned Discharge Date 09/15/24 DS: Providers Provider Date of admission: 09/14/24 14:54 Primary care physician: Xiang Hendricks MD Admitting Provider: Karen Zamora DO Attending Provider on Admission: Giovanni Monterroso DO Consults: 09/12/24 16:08 Consult to Neurology / Tele-Neurology Routine Comment: Consulting Provider: [facility] 09/12/24 18:23 Referral Speech Therapy Routine Comment: 09/12/24 18:24 Referral Physical Therapy Routine Comment: Physician Instructions: 09/12/24 21:26 Referral Smoking Cessation Counseling Routine Comment: Smoking Cessation Education Needed Attending Provider on DC: Giovanni Monterroso DO Discharging Provider: Giovanni Monterroso DO DS: Diagnosis Problem List Completed Was Problem List Reviewed/Reconciled?: Yes Hospital Course Hospital Course Hospital course: Mrs. Best is a 44-year-old female with a past medical history of non-insulin dependent type 2 diabetes, active smoker (10 pk-yrs), previous meth use (quit 3 years ago) who was admitted from ED on 09/12/24 for stroke concern (ruled out). Patient had reported intermittent left-sided numbness and tingling onset early 04/2024. She had decided to come to the ED after worsening of arm and leg weakness, dizziness, eye dryness, tunnel vision (bilateral, but occasionally worse on right during admission), and difficulty with speech comprehension of co-workers. Workup suggesting demyelinating disease on brain and cervical/thoracic MRI. Neurology consulted and recommended outpatient follow-up for nerve conduction studies, and 3-month MRI repeat. Currently scheduled for 10/08/24. Also with history of syphilis treated in 2019. Syphilis serology positive, but pending confirmatory test, which patient will follow up on out- patient. At discharge, patient reports improvement in vision (right worse than left), and left numbness/paresthesias. She has ongoing radiating pain down left thigh. She denies dysuria or hematuria. Patient to be discharged on cephalexin x 2 more days (last dose on 09/17) for treatment of UTI. Discharge Instructions: Follow up with PCP within one week of discharge Take the antibiotic I prescribed you to finish up your course, it is called Cephalexin, take as prescribed you were found to have a UTI I am prescribing your Iron for your anemia, take as prescribed I am prescribing your Vitamin B12 as your levels were borderline low in the hospital, take as prescribed You will need repeat imaging of your spine as we suspect a possible demyelinating disease process. Do this within 3 months of discharge Have your PCP refer you to a neurologist outpatient. You will need to follow up with the confirmatory syphillis test as you tested positive on the initial screen. Follow up outpatient in regards to the confirmatory test with the county Return to the ED if your symptoms worsen or return #Problem list: #L sided numbness, tingling, weakness with associated transient visual disturbance #Hx syphilis in 2019 - treated at that time #UTI #Non insulin dependent type II DM #Tobacco use (10 pack-years) #Psychosocial stress #Meth use hx #Microcytic anemia Case discussed with my attending Dr. Monterroso, and senior resident, Dr. Carlos Yates, OMS4 Time Spent with Patient Time attestation: Total time spent providing and/or coordinating discharge services: Time spent: Greater than 30 minutes Quality: Stroke Pt Provided Written Stroke Discharge Instructions: No Exam Vital Signs Temp Pulse Resp BP Pulse Ox O2 Del Method 97.4 F 74 18 120/84 96 Room Air 09/15/24 08:00 09/15/24 08:00 09/15/24 08:00 09/15/24 08:00 09/15/24 08:00 09/15/24 08:00 Narrative Exam GENERAL: A&OX3. No acute distress. Not diaphoretic. HEENT: Normocephalic. No scleral icterus. EOMI CV: Regular rate and rhythm. S1 and S2 heard. No murmurs. PULM: No accessory muscle use. CTAB. No wheezing or crackles. SKIN: Warm and dry. NEURO: Moving all extremities spontaneously. Left upper and lower extremities weaker than right, but able to move against resistance. Sensation present and equal bilaterally on face. Sensation decreased on left upper and lower extremities compared to right. No aphasia. No facial asymmetry. PSYCH: Cooperative with exam. Discharge Plan Plan Patient Disposition: HOME (Self Care) Patient condition on transfer: Stable Care Plan Goals: Discharge Instructions: Follow up with PCP within one week of discharge Take the antibiotic I prescribed you to finish up your course, it is called Cephalexin, take as prescribed you were found to have a UTI I am prescribing your Iron for your anemia, take as prescribed I am prescribing your Vitamin B12 as your levels were borderline low in the hospital, take as prescribed You will need repeat imaging of your spine as we suspect a possible demyelinating disease process. Do this within 3 months of discharge Have your PCP refer you to a neurologist outpatient. You will need to follow up with the confirmatory syphillis test as you tested positive on the initial screen. Follow up outpatient in regards to the confirmatory test with the county Return to the ED if your symptoms worsen or return Prescriptions/Referrals Prescriptions/Med Rec: New cephalexin 500 mg capsule 500 mg PO QID 2 Days Qty: 8 0RF Rx Instructions: Take one capsule by mouth four times a day cyanocobalamin (vitamin B-12) 5,000 mcg capsule 5,000 mcg PO QDAY 30 Days Qty: 30 0RF Rx Instructions: Take one capsule by mouth every day ferrous sulfate 325 mg (65 mg iron) tablet 325 mg PO Q OTHER DAY 30 Days Qty: 15 0RF Rx Instructions: Take one tablet by mouth every other day Continued acetaminophen [Tylenol Extra Strength] 500 mg tablet 1,000 mg PO QID PRN (Reason: fever or pain) Qty: 60 0RF dicyclomine 20 mg tablet 20 mg PO BID Qty: 10 0RF atorvastatin 20 mg tablet 20 mg PO QDAY Patient Comments: TAKE 1 TABLET BY MOUTH EVERY DAY lisinopril 2.5 mg tablet 2.5 mg PO QDAY Patient Comments: TAKE 1 TABLET BY MOUTH EVERY DAY FOR 30 DAYS Janumet 50-1,000 mg tablet 1 tab PO BID Patient Comments: TAKE 1 TABLET BY MOUTH TWICE A DAY WITH MEALS FOR 90 DAYS Discontinued albuterol sulfate 90 mcg/actuation HFA aerosol inhaler 2 puff inhalation QID PRN (Reason: shortness of breath or wheezing) Qty: 18 0RF albuterol sulfate 90 mcg/actuation HFA aerosol inhaler 2 puff inhalation QID Qty: 18 0RF ibuprofen [IBU] 800 mg tablet 800 mg PO TID PRN (Reason: pain) Qty: 30 0RF Referrals: Xiang Hendricks MD [Primary Care Provider] - Patient/Caregiver Discharge Instructions Discharge Activity: activity as tolerated Education Materials: ED Radiculopathy, Cervical, ED CYSTITIS Female Adult, Diabetic Neuropathy Print Language: Chadian Stand Alone Forms: [employer] Award Info., Patient Portal Info Letter, Work/Release Restrictions Discharge Order Discharge Orders: Discharge (Routine); Ordered 09/15/24 Ordered By: May Gonzalez Quality Discharge Quality Measures VTE prophylaxis Attestestation Attestation I have discussed and was present for the essential components of the discharge history, physical examination, diagnosis, and discharge treatment plan with the resident. I agree with the patient's discharge care as documented by the resident and amended herein by me. Howard Monterroso DO. The patient understood all discharge instructions, all questions were answered satisfactorily. The patient was instructed to return to the Emergency Department is symptoms worsened or persisted. Patient will need repeat MRI within 3 months for possible demyelinating disease, will need close follow-up with primary care physician and referral to neurologist. Patient understood all instructions. Syphilis serologies were positive however she stated she had syphilis approximately 5 years ago and was previously treated, which can cause positive testing. Confirmatory testing has been sent, can follow-up with primary care physician for results. Although this document has been carefully reviewed, there may still be some phonetic and other typographical errors. These errors are purely grammatical due to imperfections in the software program and should not be construed in any way to compromise the substance of the patient's medical care during this visit.
[2024-09-15 12:00] VITALS: BP 125/88; PULSE 74; PULSE 88; RESP 18; TEMP 36.3; O2SAT 96
== END 2024-09-15 13:49 | disposition home or self-care (01) | DRG 58 ==
LOC: SERX 17:12 → SERHOLD 18:33 → S2NX 20:43 → S3SX 09-13 02:31
PROVIDERS: Internal Medicine; Admitting Provider Internal Medicine; Emergency Provider Family Medicine; PCP Family Medicine; Visit Provider Student in an Organized Health Care Education/Training Program
DX: R20.2 Paresthesia of skin (principal); R53.1 Weakness; N39.0 Urinary tract infection, site not specified; E11.9 Type 2 diabetes mellitus without complications; F17.200 Nicotine dependence, unspecified, uncomplicated; H53.8 Other visual disturbances; A53.9 Syphilis, unspecified; D50.9 Iron deficiency anemia, unspecified; N95.1 Menopausal and female climacteric states; Z79.84 Long term (current) use of oral hypoglycemic drugs; Z98.891 History of uterine scar from previous surgery
CPT/HCPCS: 36415; 70450; 70553; 72156; 72157; 80053; 80061; 80307; 80320; 81001; 82607; 83036; 83735; 83880; 84100; 84443; 84484; 85025; 85610; 85652; 85730; 86140; 86780; 87077; 87086; 87186; 92610; 93005; 93225; 94664; 96360; 96361; 97161; 99284; A9577; G0378; J0696; J1650; J1815; J1885; J3360; J3420; J3475; J7030; A9270; G0480